=== PATIENT | male | born 1950 | race Caucasian/White ===

== ENCOUNTER 2020-05-02 13:52 | Outpatient (CLI) | payer OTHER, SELFPAY ==
[2020-05-02 17:32] LABS: Basophils Absolute Auto 0.1 K/mm3 (0.0-0.1); Basophils Percent Auto 0.6 % (0.2-1.2); Eosinophils Absolute Auto 0.1 K/mm3 (0-0.3); Eosinophils Percent Auto 0.7 % (0-4.4); Hematocrit 45.1 % (42.0-52.0); Hemoglobin 14.7 g/dL (14.0-18.0); Immature Granulocyte Absolute 0.03 K/mm3 (0.00-0.031); Immature Granulocyte Percent A 0.4 % (0-0.5); Lymphocytes Absolute Auto 2.01 K/mm3 (0.9-3.2); Lymphocytes Percent Auto 24.1 % (18.3-44.2); Mean Corpuscular HGB Conc 32.6 g/dl (32-36); Mean Corpuscular Hemoglobin 29.5 pg (26-34); Mean Corpuscular Volume 90.6 fl (80-100); Mean Platelet Volume 10.3 fl (7.4-10.4); Monocytes Absolute Auto 0.6 K/mm3 (0.1-0.6); Monocytes Percent Auto 7.2 % (2.6-8.5); Neutrophils Absolute Auto 5.6 K/mm3 (1.3-6.7); Platelet Count Result 449 k/mm3 (150-375); Red Blood Count 4.98 M/mm3 (4.6-6.20); Red Cell Distribution Width 13.3 % (11.5-14.5); White Blood Count 8.4 K/mm3 (4.5-10.0)
[2020-05-02 17:37] LABS: Add Urine Microscopic? YES; Appearance Urine Clear (Clear); Bilirubin Urine Negative (Negative); Blood Urine Negative (Negative); Color Urine Straw (Yellow); Glucose Urine UA 3+ mg/dL (Negative); Ketones Urine Negative (Negative); Leukocyte Esterase Ur Negative LEU/UL (Negative); Nitrate Urine Negative (Negative); Protein Urine Negative (Negative); RBC Urine 0-2 /hpf (0-2); Specific Grav Ur 1.009 (1.001-1.035); Urobilinogen Urine Negative mg/dL (<2.0); WBC Urine 0-3 /hpf
[2020-05-02 17:50] LABS: Iron 60 ug/dL (49-181)
[2020-05-02 17:52] LABS: Alanine Aminotransferase 23 U/L (4-50); Albumin Level 4.6 g/dL (3.5-5.1); Alkaline Phosphatase 68 U/L (38-126); Anion Gap 12 mmol/L (8-16); Aspartate Amino Transferase 23 U/L (17-59); Bilirubin,Total 0.5 mg/dL (0.2-1.3); Blood Urea Nitrogen 16 mg/dL (9-20); Calcium 9.8 mg/dL (8.4-10.2); Carbon Dioxide 26 mmol/L (22-30); Chloride 99 mmol/L (98-107); Cholesterol 115 mg/dL (0-200); Estimated Glomerular Filt Rate 43; Glucose 124 mg/dL (75-110); HDL Direct 38 mg/dL; Potassium 4.6 mmol/L (3.4-5.0); Sodium 137 mmol/L (137-145); Triglycerides 206 mg/dL (<150)
[2020-05-02 17:59] LABS: Percent Iron Saturation 16 % (20-50)
[2020-05-02 18:03] LABS: LDL Cholesterol Direct 41 mg/dL
[2020-05-02 18:10] LABS: Vitamin D 25 Hydroxy 20.5 ng/mL
[2020-05-08 10:08] LABS: Testosterone Total 273 ng/dL (250-1100)
== END 2020-05-02 13:53 | disposition home or self-care (01) ==
LOC: ANHBWCLAB 13:54
PROVIDERS: PCP Family Medicine; Visit Provider Family Medicine
DX: E11.9 Type 2 diabetes mellitus without complications (principal); N28.1 Cyst of kidney, acquired; E78.2 Mixed hyperlipidemia; G56.02 Carpal tunnel syndrome, left upper limb; N18.30 Chronic kidney disease, stage 3 unspecified; I12.9 Hypertensive chronic kidney disease with stage 1 through stage 4 chronic kidney disease, or unspecified chronic kidney disease; E66.3 Overweight; D47.3 Essential (hemorrhagic) thrombocythemia; Z82.62 Family history of osteoporosis; R53.83 Other fatigue; E87.1 Hypo-osmolality and hyponatremia; Z79.899 Other long term (current) drug therapy; M19.91 Primary osteoarthritis, unspecified site; N99.89 Other postprocedural complications and disorders of genitourinary system
CPT/HCPCS: 36415; 80053; 80061; 81001; 82306; 82607; 82746; 83036; 83540; 83550; 84402; 84403; 84443; 84681; 85025

== ENCOUNTER → 2020-07-03 10:54 | Outpatient (CLI) | payer OTHER, SELFPAY ==
--- NOTE | ~2020-07-03 | US_ITS ---
US renal BI 07/03/2020 11:12 Procedure: Realtime transabdominal ultrasound of the kidneys and bladder. Indication: Chronic kidney disease Comparison: 03/20/2019 Findings: Renal echotexture is normal bilaterally without hydronephrosis, contour deforming mass or r enal calculus. There is mild renal cortical thinning. The right kidney measures 10 cm and left kidney measures 10.6 cm. Bladder within normal limits. Impression: 1: Mild chronic bilateral renal cortical thinning. Reviewed, dictated and finalized at location B. AL PROCESSING ENGINEER Impression: 1: Mild chronic bilateral renal cortical thinning.
== END ==
PROVIDERS: PCP Family Medicine; Visit Provider Internal Medicine Nephrology
DX: I12.9 Hypertensive chronic kidney disease with stage 1 through stage 4 chronic kidney disease, or unspecified chronic kidney disease (principal); N18.30 Chronic kidney disease, stage 3 unspecified; E11.9 Type 2 diabetes mellitus without complications; E78.5 Hyperlipidemia, unspecified
CPT/HCPCS: 76775

== ENCOUNTER 2021-02-02 01:11 | Day surgery (SDC) | payer OTHER, SELFPAY ==
[2021-01-21 14:47] VITALS: BMI 28.0
[2021-02-02 12:57] VITALS: BP 143/100; PULSE 100; RESP 20; TEMP 36.8; O2SAT 100; BMI 27.9
[2021-02-02 13:12] LABS: Glucose Point of Care 167 mg/dl (65-105)
--- NOTE | 2021-02-02 13:12 | WPDANESEPPF ---
Anes - Initial Pre Proc Eval Procedure: Operation Date: 02/02/21 13:45 Proposed Procedures p Screening Colonoscopy - Juni Velazquez MD Date/Time: 02/02/21 13:12 Surgeon: Juni Velazquez MD Pre Op Diagnosis: neoplasm screening Patient Data Age: 70 Gender: M Height: 1.75 m Weight: 86.36 kg Allergies Allergy/AdvReac Type Severity Reaction Status Date / Time No Known Allergies Allergy Verified 02/02/21 12:56 Home Medications Medication Instructions Recorded Confirmed Type aspirin 81 mg tablet,delayed 81 mg PO DAILY 05/02/20 01/21/21 History release rosuvastatin 20 mg tablet 10 mg PO DAILY #45 tablet 05/08/20 01/21/21 Rx amlodipine 10 mg tablet 10 mg PO DAILY #90 tablet 10/31/20 01/21/21 Rx losartan 100 mg tablet See Rx Instructions .ROUTE 10/31/20 01/21/21 Rx .COMPLEX #90 tablet metformin 1,000 mg PO BID 01/21/21 01/21/21 History sitagliptin [Januvia] 50 mg PO DAILY 01/21/21 01/21/21 History Laboratory Tests 02/02/21 13:09 POC Capillary Glucose Pending Patient hx anesthesia problems: none Family hx anesthesia problems: none PMFSH Past Medical History Medical History (Updated 02/02/21 @ 13:13 by Rob Whaley MD) Benign essential hypertension CKD (chronic kidney disease) stage 3, GFR 30-59 ml/min Mixed hyperlipidemia Type 2 diabetes mellitus without complication, without long-term current use of insulin Family History Family History Sibling Cerebrovascular accident Mother Heart disease Father Heart disease Social History Social History Smoking status: Never smoker Alcohol intake: never Substance use: never Substance use type: does not use Living arrangements: with family Spiritual care concerns: No Anes - Eval Final PreProcedure Day of Procedure 02/02/21 13:12 Patient weight: overweight Heart: regular rate and rhythm Lungs: clear to auscultation Airway: Mallampati scale class II Neurological: alert and oriented Last oral intake: >/= 8 hours ASA classification: III Emergent: no Anesthetic plan: proceed Anesthesia type and monitoring: general GIVS and standard monitoring Informed Consent: The patient's anesthetic plan and its attendant risks and benefits were discussed with the patient/family/POA. Questions were solicited and answers provided to the satisfaction of the patient/family/POA.
[2021-02-02] MEDS: LACTATED RINGERS 1,000 ML 150 ML IV CONT (13:13)
--- NOTE | 2021-02-02 13:52 | PM.HPGS ---
History of Present Illness History of Present Illness Consent: Risks, benefits, and alternatives have been discussed and questions answered. Patient agrees to proceed with procedure. Chief complaint: neoplasm screening Narrative: Gilmer Humphreys Jr. is a 70 year old male here for first screening colonoscopy Review of Systems Constitutional: Constitutional: Denies headache(s) and Denies weakness Eyes: Eyes: Denies blurry vision ENT: Reports Normal hearing present, Denies headache(s) and Denies neck pain Cardiovascular: Cardiovascular: Denies chest pain and Denies dyspnea Respiratory: Respiratory: Denies dyspnea Gastrointestinal: Gastrointestinal: Reports no additional gastrointestinal complaints Genitourinary: Genitourinary: Denies dysuria Musculoskeletal: Musculoskeletal: Denies neck pain Integumentary/Breasts: Skin/Breast: Denies dry skin Neurologic: Reports Normal hearing present, Denies headache(s) and Denies weakness Psychiatric: Psychiatric: Denies anxiety Endocrine: Endocrine: Denies change in body appearance Hematologic/Lymphatic: Hematologic/Lymphatic: Denies easy bleeding Allergic/Immunologic: Allergic/Immunologic: Denies urticaria PMFSH Past Medical History Medical History (Updated 02/02/21 @ 13:53 by Juni Velazquez MD) Benign essential hypertension CKD (chronic kidney disease) stage 3, GFR 30-59 ml/min Colon cancer screening Mixed hyperlipidemia Type 2 diabetes mellitus without complication, without long-term current use of insulin Family History Family History Sibling Cerebrovascular accident Mother Heart disease Father Heart disease Social History Social History Smoking status: Never smoker Alcohol intake: never Substance use: never Substance use type: does not use Living arrangements: with family Spiritual care concerns: No Meds Home Medications and Allergies Home Medications Medication Instructions Recorded Confirmed Type aspirin 81 mg tablet,delayed 81 mg PO DAILY 05/02/20 01/21/21 History release rosuvastatin 20 mg tablet 10 mg PO DAILY #45 tablet 05/08/20 01/21/21 Rx amlodipine 10 mg tablet 10 mg PO DAILY #90 tablet 10/31/20 01/21/21 Rx losartan 100 mg tablet See Rx Instructions .ROUTE 10/31/20 01/21/21 Rx .COMPLEX #90 tablet metformin 1,000 mg PO BID 01/21/21 01/21/21 History sitagliptin [Januvia] 50 mg PO DAILY 01/21/21 01/21/21 History Allergies Allergy/AdvReac Type Severity Reaction Status Date / Time No Known Allergies Allergy Verified 02/02/21 12:56 Vital Signs Vital Signs - 24 hr 02/02/21 12:57 Temperature 98.2 F Pulse Rate 100 Respiratory Rate 20 Blood Pressure 143/100 H Pulse Oximetry 100 Exam Const: General: comfortable and no acute distress HENMT: General nose exam: Normal nares present Eyes: General: appearance normal, both eyes and all related structures Neck: Neck: no JVD Resp: Auscultation: clear to auscultation bilaterally Cardio: Rate: regular rate Rhythm: regular rhythm GI: Inspection: non-distended GI Palp: Yes Soft to palpation Skin: General skin exam: normal color Neuro: General: gait normal Speech: normal speech Extrem: General: normal to inspection Psych: Mental Status: mental status grossly normal Assessment and Plan Assessment and plan (1) Colon cancer screening: Code(s): Z12.11 - Encounter for screening for malignant neoplasm of colon Status: Acute Assessment and Plan: colonoscopy
[2021-02-02 14:12] VITALS: BP 101/74; PULSE 82; RESP 18; O2SAT 97
[2021-02-02 14:22] VITALS: BP 113/82; PULSE 72; RESP 17; O2SAT 98
[2021-02-02 14:32] VITALS: BP 135/92; PULSE 77; RESP 15; O2SAT 100
== END 2021-02-02 14:49 | disposition home or self-care (01) ==
PROVIDERS: PCP Family Medicine; Visit Provider Internal Medicine Gastroenterology
PROC: 0DJD8ZZ Inspection of Lower Intestinal Tract, Via Natural or Artificial Opening Endoscopic (ICD-10-PCS; CPT 45378; principal; 2021-02-02 13:45)
DX: Z12.11 Encounter for screening for malignant neoplasm of colon (principal); K63.5 Polyp of colon; K57.30 Diverticulosis of large intestine without perforation or abscess without bleeding; K64.8 Other hemorrhoids; I12.9 Hypertensive chronic kidney disease with stage 1 through stage 4 chronic kidney disease, or unspecified chronic kidney disease; E11.22 Type 2 diabetes mellitus with diabetic chronic kidney disease; N18.30 Chronic kidney disease, stage 3 unspecified; Z79.82 Long term (current) use of aspirin; Z79.84 Long term (current) use of oral hypoglycemic drugs
CPT/HCPCS: 45385; 82948; 88305; J2704; J7120

== ENCOUNTER 2021-03-26 14:32 | Outpatient (CLI) | payer OTHER, SELFPAY ==
[2021-03-26 18:09] LABS: Basophils Absolute Auto 0.1 K/mm3 (0.0-0.1); Basophils Percent Auto 0.9 % (0.2-1.2); Eosinophils Absolute Auto 0.1 K/mm3 (0-0.3); Eosinophils Percent Auto 1.2 % (0-4.4); Hematocrit 40.8 % (42.0-52.0); Hemoglobin 13.9 g/dL (14.0-18.0); Immature Granulocyte Absolute 0.03 K/mm3 (0.00-0.031); Immature Granulocyte Percent A 0.4 % (0-0.5); Lymphocytes Absolute Auto 1.76 K/mm3 (0.9-3.2); Lymphocytes Percent Auto 21.7 % (18.3-44.2); Mean Corpuscular HGB Conc 34.1 g/dl (32-36); Mean Corpuscular Hemoglobin 29.2 pg (26-34); Mean Corpuscular Volume 85.7 fl (80-100); Mean Platelet Volume 10.3 fl (7.4-10.4); Monocytes Absolute Auto 0.8 K/mm3 (0.1-0.6); Monocytes Percent Auto 9.2 % (2.6-8.5); Neutrophils Absolute Auto 5.4 K/mm3 (1.3-6.7); Neutrophils Percent Auto 66.6 % (45.5-73.1); Platelet Count Result 375 k/mm3 (150-375); Red Blood Count 4.76 M/mm3 (4.6-6.20); Red Cell Distribution Width 12.5 % (11.5-14.5); White Blood Count 8.1 K/mm3 (4.5-10.0)
[2021-03-26 18:21] LABS: Alanine Aminotransferase 46 U/L (4-50); Albumin Level 4.7 g/dL (3.5-5.1); Alkaline Phosphatase 65 U/L (38-126); Anion Gap 13 mmol/L (8-16); Aspartate Amino Transferase 28 U/L (17-59); Bilirubin,Total 0.7 mg/dL (0.2-1.3); Blood Urea Nitrogen 16 mg/dL (9-20); Calcium 10.1 mg/dL (8.4-10.2); Carbon Dioxide 21 mmol/L (22-30); Chloride 102 mmol/L (98-107); Cholesterol 157 mg/dL (0-200); Estimated Glomerular Filt Rate 55; Glucose 178 mg/dL (65-110); HDL Direct 39 mg/dL; Potassium 4.4 mmol/L (3.4-5.0); Sodium 136 mmol/L (137-145); Triglycerides 295 mg/dL (<150)
[2021-03-26 18:22] LABS: Iron 65 ug/dL (49-181)
[2021-03-26 18:24] LABS: Hemoglobin A1C 8.2 % (<5.7)
[2021-03-26 18:31] LABS: LDL Cholesterol Direct 65 mg/dL
[2021-03-26 18:35] LABS: Percent Iron Saturation 18 % (20-50)
[2021-03-26 19:36] LABS: MALB Creatinine Ratio 24.1 mg/g (0-30); Microalbumin Urine Random 13.5 mg/L (0-16.7)
== END 2021-03-26 14:33 | disposition home or self-care (01) ==
PROVIDERS: PCP Family Medicine; Visit Provider Family Medicine
DX: Z12.5 Encounter for screening for malignant neoplasm of prostate (principal); R53.83 Other fatigue; E87.1 Hypo-osmolality and hyponatremia; E11.9 Type 2 diabetes mellitus without complications; D47.3 Essential (hemorrhagic) thrombocythemia; N18.30 Chronic kidney disease, stage 3 unspecified; Z00.00 Encounter for general adult medical examination without abnormal findings
CPT/HCPCS: 36415; 80053; 80061; 82043; 83036; 83540; 83550; 84153; 85025; G0103

== ENCOUNTER 2021-04-06 23:39 | Inpatient (IN) | payer OTHER, SELFPAY ==
--- NOTE | ~2021-04-06 | XR_ITS ---
EXAMINATION: XR orbit foreign body DATE: 04/07/2021 11:27 INDICATION: Metal near eye. TECHNIQUE: 2 views of the orbits were obtained. COMPARISON: None. FINDINGS: There is leftward deviation the nasal septum. No fracture. There is a 6 x 2 mm radiopaque f oreign body in the periorbital soft tissues superomedial to the right orbit. IMPRESSION: 1. 6 x 2 mm radiopaque foreign body in the periorbital soft tissues superomedial to the right orbit. Reviewed, dictated and finalized at location A. EMIC SUPPORT COORDINATOR IMPRESSION: 1. 6 x 2 mm radiopaque foreign body in the periorbital soft tissues superomedia l to the right orbit.
--- NOTE | ~2021-04-06 | CT_ITS ---
EXAMINATION: CT abdomen pelvis w con DATE: 04/07/2021 01:38 INDICATION: Epigastric abdominal pain. Nausea and vomiting. History of gallstones. TECHNIQUE: Computed tomography (CT) of the abdomen and pelvis was performed with 100 cc Omnipaque 350 intravenous contrast. Automated exposure control and iterative reconstruction technique were employe d. Exam dose: 718.00 mGy-cm total exam DLP. COMPARISON: 11/30/2017 CT abdomen pelvis FINDINGS: There is minimal bilateral lower lobe dependent atelectasis, right greater than left. Normal heart size. Coronary artery calcifications. No pericardial or pleural effusion. Small sliding hiatal hernia and circumferential soft tissue thickening of the distal esophagus which may indicate esophagitis. There are numerous stones in the gallbladder. There is air within the gallbladder lumen and considera ble air within the hepatic bile ducts. The common bile duct is dilated up to approximately 12 mm. In some soft tissue density in the distal common bile duct which may be due to stones or neoplasm. No hepatic, splenic, pancreatic, and adrenal or renal space-occupying mass lesion is noted other than a 8 mm lower pole right renal cyst. No urinary tract calculus or hydroureteronephrosis. There is atherosclerotic calcification of the abdominal aorta but no aneurysm. No intraperitoneal or retroperitoneal or pelvic mass lesion or adenopathy or ascites. There is prostate enlargement and mild prostate calcification. The urinary bladder is unremarkable. There are multiple diverticula of the left colon; no CT evidence of diverticulitis. Normal appendix. No bowel obstruction, bowel wall thickening, pneumatosis or intraperitoneal free air is detected. Diffuse idiopathic skeletal hyperostosis of the thoracic and lumbar spine. Severe degenerative disc d isease at L5-S1. No suspicious osteolytic or osteoblastic lesions are noted. IMPRESSION: Cholelithiasis Pneumobilia Common bile duct dilatation; soft tissue density in the distal common bile duct may be due to choledo cholithiasis or neoplasm; consider MRCP or ERCP as clinically appropriate 8 mm lower pole right renal cyst Prostate enlargement and calcification Diverticulosis of left colon; no CT evidence of diverticulitis Reviewed, dictated and finalized at Location A. Reviewed, dictated and finalized at location A. DESTRUCTIVE TESTING INSPECTOR IMPRESSION: Cholelithiasis Pneumobilia Common bile duct dilatation; soft tissue density in the distal common bile duct may be due to choledocholithiasis or neoplasm; consider MRCP or ERCP as clinic ally appropriate 8 mm lower pole right renal cyst Prostate enlargement and calcification Diverticulosis of left colon; no CT evidence of diverticulitis
--- NOTE | ~2021-04-06 | MR_ITS ---
EXAMINATION: MR MRCP wo/w con/w 3D wo ind DATE: 04/07/2021 12:18 INDICATION: Epigastric abdominal pain. TECHNIQUE: Magnetic resonance imaging (MRI) of the abdomen was performed without and with 17 mL Multi Thaddeus intravenous contrast. Sequences included coronal T2-weighted FS FSE, coronal T2-weighted FSE, a xial T1-weighted LAVA, coronal FS FIESTA, axial dual-echo T1-weighted SPGR, coronal lava-FLEX, sagitt al T2-weighted FSE, axial T2-weighted FSE, and axial DWI. Thick-slab T2-weighted FSE images were obta ined for magnetic resonance cholangiopancreatography (MRCP). Maximum intensity projection 3-D reconst ructions of the volumetric data were created by the technologist. Postcontrast sequences included cor onal LAVA-flex and time course of axial T1-weighted LAVA. COMPARISON: CT abdomen and pelvis 04/07/2021 FINDINGS: ABDOMEN MRI: There is diffuse hepatic steatosis. There is mild intrahepatic biliary duct dilatation. The spleen is normal. There are gallstones in the gallbladder, which is distended and demonstrates wa ll thickening and adjacent fat stranding. The pancreas and adrenal glands are normal. There is cortic al thinning of the kidneys. There are cysts in right kidney measuring up to 9 mm. There are no dilate d loops of bowel. There is diverticulosis of the colon without evidence of diverticulitis. There are no pathologically enlarged lymph nodes. There is no free intraperitoneal fluid. ABDOMEN MRCP: The common duct is dilated to 11 mm. No choledocholithiasis. IMPRESSION: 1. Acute cholecystitis. 2. Mild intrahepatic and extrahepatic biliary duct dilatation. No choledocholithiasis. Reviewed, dictated and finalized at location A. INUOUS PROCESS TANNER ROTARY DRUM IMPRESSION: 1. Acute cholecystitis. 2. Mild intrahepatic and extrahepatic biliary duct dilatation. No choledocholit hiasis.
[2021-04-07] VITALS (11 sets, daily range): BP systolic 101–199; BP diastolic 44–100; PULSE 68–110; RESP 16–18; TEMP 35.7–36.8; O2SAT 95–99; BMI 28.3
[2021-04-07 00:39] LABS: Basophils Absolute Auto 0.1 K/mm3 (0.0-0.1); Basophils Percent Auto 0.4 % (0.2-1.2); Eosinophils Percent Auto 0.1 % (0-4.4); Hematocrit 40.7 % (42.0-52.0); Immature Granulocyte Percent A 0.6 % (0-0.5); Lymphocytes Absolute Auto 1.35 K/mm3 (0.9-3.2); Lymphocytes Percent Auto 7.6 % (18.3-44.2); Mean Corpuscular HGB Conc 34.4 g/dl (32-36); Mean Corpuscular Hemoglobin 29.6 pg (26-34); Mean Platelet Volume 9.6 fl (7.4-10.4); Monocytes Absolute Auto 0.6 K/mm3 (0.1-0.6); Monocytes Percent Auto 3.2 % (2.6-8.5); Neutrophils Absolute Auto 15.6 K/mm3 (1.3-6.7); Neutrophils Percent Auto 88.1 % (45.5-73.1); Platelet Count Result 456 k/mm3 (150-375); Red Blood Count 4.73 M/mm3 (4.6-6.20); Red Cell Distribution Width 12.2 % (11.5-14.5); White Blood Count 17.7 K/mm3 (4.5-10.0)
--- NOTE | 2021-04-07 00:51 | ED.ABDPAIN ---
HPI - Abdominal Pain General Chief Complaint: Abdominal Pain Stated Complaint: abdominal pain Time Seen by Provider: 04/07/21 00:51 Source: patient Mode of arrival: ambulatory Limitations: no limitations History of Present Illness HPI narrative: Patient is a 70-year-old male complain of epigastric pain, 7 out of 10, sharp, nonradiating accompanied by nausea and vomiting that started today. Patient denies any chest pain, shortness of breath, diarrhea, fever, chills or urinary symptoms. Related Data Home Medications Medication Instructions Recorded Confirmed aspirin 81 mg tablet,delayed 81 mg PO DAILY 05/02/20 04/01/21 release Allergies Allergy/AdvReac Type Severity Reaction Status Date / Time No Known Allergies Allergy Verified 04/07/21 00:39 Review of Systems Review of Systems: All systems reviewed & are unremarkable except as noted in HPI and below Constitutional: Constitutional: Denies body ache(s), Denies chills, Denies excessive sweating, Denies fatigue, Denies fever(s), Denies headache(s), Denies lethargy, Denies malaise, Denies weakness and Denies weight loss Eyes: Eyes: Denies blurry vision, Denies change in vision and Denies loss of vision ENT: Denies dizziness, Denies ear discharge, Denies headache(s), Denies lip swelling, Denies epistaxis, Denies nasal congestion, Denies neck pain, Denies throat swelling and Denies tongue swelling Cardiovascular: Cardiovascular: Denies chest pain, Denies chest pain at rest, Denies chest pain with activity, Denies diaphoresis, Denies rapid heart rate, Denies edema, Denies irregular heart rhythm, Denies lightheadedness, Denies palpitations, Denies dyspnea and Denies dyspnea on exertion Respiratory: Respiratory: Denies chest congestion, Denies cough, Denies hemoptysis, Denies dyspnea and Denies dyspnea on exertion Gastrointestinal: Gastrointestinal: Denies melena, Denies hematochezia, Denies diarrhea and Denies hematemesis Musculoskeletal: Musculoskeletal: Denies abnormal gait, Denies deformity, Denies joint swelling, Denies limited range of motion, Denies neck pain and Denies numbness Neurologic: Denies Abnormal speech present, Denies abnormal gait, Denies confusion, Denies dizziness, Denies headache(s), Denies focal weakness, Denies loss of vision, Denies numbness, Denies Other visual disturbances, Denies Sensory deficit (Neuro) and Denies weakness Psychiatric: Psychiatric: Denies confusion, Denies depression, Denies auditory hallucinations, Denies homicidal ideation and Denies suicidal ideation Endocrine: Endocrine: Denies cold intolerance, Denies excessive sweating, Denies fatigue, Denies heat intolerance and Denies palpitations Hematologic/Lymphatic: Hematologic/Lymphatic: Denies easy bleeding and Denies easy bruising Allergic/Immunologic: Allergic/Immunologic: Denies lip swelling, Denies throat swelling and Denies tongue swelling PMFSH Past Medical History Medical History Benign essential hypertension CKD (chronic kidney disease) stage 3, GFR 30-59 ml/min Colon cancer screening Mixed hyperlipidemia Type 2 diabetes mellitus without complication, without long-term current use of insulin Family History Family History Sibling Cerebrovascular accident Mother Heart disease Father Heart disease Social History Social History Smoking status: Never smoker Alcohol intake: never Substance use: never Substance use type: does not use Spiritual care concerns: No Exam Const: General: cooperative, healthy appearing, comfortable, no acute distress, well developed, alert and awake; No confusion Orientation/consciousness: oriented to person, oriented to place, oriented to time, patient oriented x3 and No confusion Limitations: no limitations HENMT: Head: normal to inspection, normocephalic and
[2021-04-07 00:53] LABS: Alanine Aminotransferase 29 U/L (4-50); Alkaline Phosphatase 66 U/L (38-126); Anion Gap 16 mmol/L (8-16); Aspartate Amino Transferase 26 U/L (17-59); Bilirubin,Total 0.5 mg/dL (0.2-1.3); Blood Urea Nitrogen 30 mg/dL (9-20); Calcium 9.5 mg/dL (8.4-10.2); Carbon Dioxide 23 mmol/L (22-30); Chloride 95 mmol/L (98-107); Estimated CRCL calculation 42 ml/min; Estimated Glomerular Filt Rate 46; Glucose 270 mg/dL (65-110); Lipase 105 U/L (23-300); Potassium 4.1 mmol/L (3.4-5.0); Sodium 134 mmol/L (137-145)
--- NOTE | 2021-04-07 01:00 | ECG_ITS ---
Measurements Intervals [place] Rate: 96 P: 36 TX: 151 QRS: 48 QRSD: 96 T: 55 QT: 368 QTc: 465 Interpretive Statements SINUS RHYTHM NONSPECIFIC T-WAVE ABNORMALITY- ANT/INF LEADS BASELINE WANDER- V1 BORDERLINE ECG Electronically Signed On 04-07-2021 6:34:34 MANAGER EMPLOYMENT by John Paul Medina D.O.
[2021-04-07] MEDS: PROMETHAZINE HCL 25 MG/ML AMPUL 12.5 MG IV PUSH (01:12)
[2021-04-07] MEDS: HYDROmorphone HCL INJ (*CRX) 1 MG/ML SYR 0.5 MG IV PUSH ×2 (01:12→05:57)
[2021-04-07] MEDS: SODIUM CHLORIDE 0.9% IV 1,000 ML 999 ML IV CONT (01:13)
[2021-04-07 01:37] LABS: Troponin I < 0.012 ng/mL (0.000-0.034)
--- NOTE | 2021-04-07 06:05 | ADMGEN ---
This patient, Gilmer Humphreys Jr., was admitted to Medical Room 349-01. Patient/family oriented to hospital policies and general routines including ID bracelet, bed and alarms, visiting hours, pain management, procedures, bathroom and other care routines, personal items, smoking policy, room service/diet, and visiting hours. Information on how to activate the Rapid Response Team has been discussed. Patient/Family are encouraged to report perceived risks to care and to ask questions if they do not understand what they are told or what they should do.
[2021-04-07] MEDS: LACTATED RINGERS 1,000 ML 125 ML IV CONT ×2 (06:13→18:11)
[2021-04-07 08:03] LABS: Glucose Point of Care 183 mg/dl (65-105)
[2021-04-07] MEDS: ONDANSETRON INJ 4 MG/2 ML VIAL IV PUSH ×2 (08:43→16:48)
[2021-04-07 09:35] LABS: Basophils Absolute Auto 0.1 K/mm3 (0.0-0.1); Basophils Percent Auto 0.2 % (0.2-1.2); Hematocrit 41.2 % (42.0-52.0); Immature Granulocyte Absolute 0.18 K/mm3 (0.00-0.031); Immature Granulocyte Percent A 0.8 % (0-0.5); Lymphocytes Absolute Auto 1.56 K/mm3 (0.9-3.2); Lymphocytes Percent Auto 6.7 % (18.3-44.2); Mean Corpuscular Hemoglobin 29.9 pg (26-34); Mean Platelet Volume 9.9 fl (7.4-10.4); Monocytes Absolute Auto 1.4 K/mm3 (0.1-0.6); Monocytes Percent Auto 5.8 % (2.6-8.5); Neutrophils Absolute Auto 20.1 K/mm3 (1.3-6.7); Neutrophils Percent Auto 86.5 % (45.5-73.1); Platelet Count Result 467 k/mm3 (150-375); Red Blood Count 4.68 M/mm3 (4.6-6.20); Red Cell Distribution Width 12.4 % (11.5-14.5); White Blood Count 23.3 K/mm3 (4.5-10.0)
[2021-04-07 09:43] LABS: Lactic Acid Reflex 1.6 mmol/L (0.7-2.1)
[2021-04-07 09:44] LABS: Alanine Aminotransferase 28 U/L (4-50); Albumin Level 4.9 g/dL (3.5-5.1); Alkaline Phosphatase 64 U/L (38-126); Anion Gap 13 mmol/L (8-16); Aspartate Amino Transferase 26 U/L (17-59); Bilirubin,Total 0.4 mg/dL (0.2-1.3); Blood Urea Nitrogen 23 mg/dL (9-20); Calcium 9.2 mg/dL (8.4-10.2); Carbon Dioxide 25 mmol/L (22-30); Chloride 94 mmol/L (98-107); Estimated CRCL calculation 48 ml/min; Estimated Glomerular Filt Rate 55; Glucose 195 mg/dL (65-110); Lipase 71 U/L (23-300); Potassium 3.8 mmol/L (3.4-5.0); Sodium 132 mmol/L (137-145)
[2021-04-07] MEDS: HYDROmorphone HCL INJ (*CRX) 1 MG/ML SYR IV PUSH ×2 (10:09→16:48)
--- NOTE | 2021-04-07 11:23 | PM.IMHP ---
H&P: HPI History of Present Illness Date/Time: 04/07/21 11:23 Pt is a 70 yo male w/ hx of HTN, HLD, CKD, DMII, and cholelithiasis who presented to the ED for epigastric pain and was subsequently admitted for cholelithiasis and possible choledocholithiasis. Pt reports that his epigastric pain started around 1400 yesterday while he was sitting watching TV. Pain had insidious onset and became progressively worse, prompting him to go to the ED for evaluation. He describes the pain as a constant ache and rates it as 10/10 currently. He also notes nausea with 4-5 episodes of vomiting yesterday. No constipation or diarrhea. No fever, chills, or body aches. Of note, patient states approximately 4 years ago he was admitted to this hospital with similar pain and was found to have gallstones. He was transferred to an outside facility and reports he had 10 gallstones removed but they did not do a cholecystectomy at the time. Review of prior records indicate he had a therapeutic ERCP in 2019 and was supposed to be referred to a general surgeon outpatient for cholecystectomy. Chief Complaint: Abdominal pain Review of Systems Review of Systems: General: Denies fevers, chills, bodyaches Eyes: Denies vision changes or eye pain ENT: Denies nasal congestion or sore throat Respiratory: Denies cough or shortness of breath Cardiovascular: Denies chest pain, palpitations, or lower extremity edema Gastrointestinal: + abdominal pain, + nausea, + vomiting, no diarrhea Genitourinary: Denies dysuria or urinary frequency Musculoskeletal: Denies back pain or muscle aches Neurological: Denies headache, paraesthesias, or motor weakness Integumentary: Denies rash or other skin lesions Psychiatric: Denies SI/HI [facility] Past Medical History Medical History (Updated 04/07/21 @ 11:45 by Caitlyn Martini PA-C) Benign essential hypertension Cholelithiasis CKD (chronic kidney disease) stage 3, GFR 30-59 ml/min Colon cancer screening Mixed hyperlipidemia Type 2 diabetes mellitus without complication, without long-term current use of insulin Surgical History Surgical History (Updated 04/07/21 @ 11:43 by Caitlyn Martini PA-C) History of carpal tunnel release History of ERCP Family History Family History Sibling Cerebrovascular accident Mother Heart disease Father Heart disease Social History Social History Smoking status: Never smoker Alcohol intake: never Substance use: never Substance use type: does not use Spiritual care concerns: No Meds Home Medications and Allergies Home Medications Medication Instructions Recorded Confirmed Type aspirin 81 mg tablet,delayed 81 mg PO DAILY 05/02/20 04/07/21 History release amlodipine 10 mg tablet 10 mg PO DAILY #90 tablet 02/18/21 04/07/21 Rx metformin 500 mg tablet 1,000 mg PO BID #180 tablet 03/19/21 04/07/21 Rx hydrochlorothiazide 12.5 mg capsule 12.5 mg PO DAILY #90 cap 04/01/21 04/07/21 Rx losartan 100 mg PO DAILY 04/07/21 04/07/21 History rosuvastatin 10 mg PO EVERY OTHER DAY 04/07/21 04/07/21 History sitagliptin [Januvia] 100 mg PO DAILY 04/07/21 04/07/21 History Allergies Allergy/AdvReac Type Severity Reaction Status Date / Time No Known Allergies Allergy Verified 04/07/21 06:17 Vital Signs Vital Signs - 24 hr 04/07/21 00:07 04/07/21 00:38 04/07/21 01:01 Temperature 97.3 F L 98 F Pulse Rate 102 H 100 Respiratory Rate 18 16 Blood Pressure 156/91 H 156/74 H 192/98 H Pulse Oximetry 98 97 04/07/21 01:41 04/07/21 01:46 04/07/21 02:46 Temperature Pulse Rate 84 Respiratory Rate 18 Blood Pressure 181/81 H 169/81 H 199/100 H Pulse Oximetry 04/07/21 03:44 04/07/21 06:14 04/07/21 06:53 Temperature 96.2 F L Pulse Rate 68 103 H Respiratory Rate 16 18 Blood Pressure 168/70 H 182/93 H 178/95 H Pulse Oximetry 99 98
[2021-04-07 12:41] LABS: Glucose Point of Care 194 mg/dl (65-105)
--- NOTE | 2021-04-07 12:51 | WPDGICN ---
Assessment and Plan Assessment and plan (1) Epigastric pain: Code(s): R10.13 - Epigastric pain Status: Acute Assessment and Plan: severe epigastric pain with similar presentation 2018 when required ERCP for choledocholithiasis but never had cholecystectomy CT scan reviewed and showed cholelithiasis but also had leukocytosis and early sepsis- possible cholecystitis, started on antibiotics will get MRCP to assess biliary system and decide if will need ERCP again will call surgery for consult, will need cholecystectomy (2) Cholecystitis: Code(s): K81.9 - Cholecystitis, unspecified Status: Acute Assessment and Plan: on antibiotics, npo and get mrcp consult surgery liver enzymes normal (3) Pneumobilia: Code(s): K83.8 - Other specified diseases of biliary tract Status: Acute Assessment and Plan: most likely from previous ercp will get MRCP to assess if he has more bile duct stones or any other lesions (4) Sepsis: Code(s): A41.9 - Sepsis, unspecified organism Status: Acute Assessment and Plan: on admission on antibiotics (5) Elevated WBC count: Qualifiers: Leukocytosis type: unspecified Qualified Code(s): D72.829 - Elevated white blood cell count, unspecified Code(s): D72.829 - Elevated white blood cell count, unspecified Status: Acute Assessment and Plan: monitor on antibiotics (6) Type 2 diabetes mellitus without complication, without long-term current use of insulin: Code(s): E11.9 - Type 2 diabetes mellitus without complications Status: Acute (7) Benign essential hypertension: Code(s): I10 - Essential (primary) hypertension Status: Acute (8) CKD (chronic kidney disease) stage 3, GFR 30-59 ml/min: Qualifiers: Chronic kidney disease stage 3 subtype: unspecified whether 3a or 3b Qualified Code(s): N18.30 - Chronic kidney disease, stage 3 unspecified Code(s): N18.3 - Chronic kidney disease, stage 3 (moderate) Status: Acute GI Consult Note Consult date/time: 04/07/21 12:51 Reason for consult: epigastric pain, cholecystitis HPI: Gilmer Humphreys Jr. is a 70 year old male with history of choledocholithiasis in 2018 when he presented to our ER but then transferred to [facility] for ERCP and stent placement then successfully removed few weeks afterward. He was told that will need cholecystectomy however never was contacted by surgery team. He also has h.o HTN, DM, colon diverticulosis. I performed his colonoscopy 01/2021 for screening and found diverticulosis and hyperplastic polyp. He is here because new onset of severe epigastric pain that started yesterday with radiation to his back and did not go away, also had nausea and vomiting. No fever or chills. This is similar to previous episode when required ERCP. He had CT scan a/p that was reviewed, showed cholelithiasis, pneumobilia and common bile duct dilatation with possible soft tissue density in the distal common bile. His liver enzymes are normal but he has leukocytosis, started on antibiotics. Review of Systems Constitutional: Constitutional: Denies chills Eyes: Eyes: Reports no additional eye complaints ENT: Reports Normal hearing present Cardiovascular: Cardiovascular: Denies chest pain Respiratory: Respiratory: Denies dyspnea Gastrointestinal: Gastrointestinal: Reports abdominal pain, Reports nausea and Reports vomiting Genitourinary: Genitourinary: Denies dysuria Musculoskeletal: Musculoskeletal: Denies neck pain Integumentary/Breasts: Skin/Breast: Denies dry skin Neurologic: Denies headache(s) Psychiatric: Psychiatric: Denies behavioral changes [facility] Past Medical History Medical History (Updated 04/07/21 @ 12:59 by Juni Velazquez MD) Benign essential hypertension Cholecystitis Cholelithiasis CKD (chronic kidney disease) stage 3, GFR 30-59 ml/min Colon cancer screening Epigastric pain Mix
--- NOTE | 2021-04-07 16:01 | PM.CNGS ---
Assessment and Plan Assessment and plan (1) Acute calculous cholecystitis: Code(s): K80.00 - Calculus of gallbladder with acute cholecystitis without obstruction Status: Acute Assessment and Plan: CT scan and MRCP reviewed and discussed with the patient in detail. CT scan showed cholelithiasis, pneumobilia, and CBD dilatation with soft tissue density in the distal CBD. MRCP then showed no evidence of choledocholithiasis and rather suggested findings of acute cholecystitis. LFTs normal. WBC up to 23,000 today. GI has been consulted and their recommendations are noted. He is continuing to have persistent abdominal pain this afternoon. We discussed treatment options with the patient regarding his acute cholecystitis. His symptoms just started yesterday afternoon, therefore he is in the timeframe where it would be reasonable to proceed with surgery. Also, considering his history of choledocholithiasis, the indication for a cholecystectomy would be even stronger. We have recommended a laparoscopic cholecystectomy, possible open, possible IOC by Dr. Corrigan in the OR under general anesthesia. Description of the procedure, risks, benefits, expected outcomes, and expected recovery were discussed with the patient in detail. All questions were answered. The patient agrees to proceed with surgery. We will work on adding him onto the OR schedule potentially tomorrow. Continue broad-spectrum IV antibiotics, IV fluids, analgesics, and antiemetics for now. We have given him a gallbladder sheet that further discuss the surgery and gives instructions on a low-fat diet to follow postoperatively. Thank you for allowing us to see the patient in consultation and we will continue to follow along with you. (2) Pneumobilia: Code(s): K83.8 - Other specified diseases of biliary tract Status: Acute Assessment and Plan: [place] likely to be due to previous ERCP. (3) Sepsis: Code(s): A41.9 - Sepsis, unspecified organism Status: Acute Assessment and Plan: Sepsis criteria met on admission with leukocytosis and tachycardia in the presence of known infection. Lactic 1.6. Likely secondary to the gallbladder. Blood cultures pending. Continue IV Zosyn, IV fluids, and trend labs. See plan above regarding cholecystectomy. (4) Type 2 diabetes mellitus without complication, without long-term current use of insulin: Code(s): E11.9 - Type 2 diabetes mellitus without complications Status: Chronic Assessment and Plan: Glucose running high 100-200's. I spoke with the patient about the associated risks with surgery regarding his diabetes. He does not have a finger-stick glucose monitor at home currently. I encouraged him to get one to watch his glucose once discharged to monitor his glucose and optimize his recovery and healing. (5) Benign essential hypertension: Code(s): I10 - Essential (primary) hypertension Status: Acute Assessment and Plan: (6) CKD (chronic kidney disease) stage 3, GFR 30-59 ml/min: Qualifiers: Chronic kidney disease stage 3 subtype: unspecified whether 3a or 3b Qualified Code(s): N18.30 - Chronic kidney disease, stage 3 unspecified Code(s): N18.3 - Chronic kidney disease, stage 3 (moderate) Status: Acute (7) Overweight (BMI 25.0-29.9): Code(s): E66.3 - Overweight Status: Acute Additional Plan I have discussed the patient's case and plan of care with Dr. Corrigan. History of Present Illness Consult details Consult date: 04/07/21 Reason for consult: gallstones (Possible acute calculous cholecystitis) Requesting physician: Juni Velazquez MD Narrative: This is a 70-year-old male with a history of type 2 diabetes mellitus and hypertension, who presented to the emergency department overnight with complaints of epigastric abdominal pain and vomiting. The patient does have a history of choledocholithiasis back in 2018, w
[2021-04-07 16:35] LABS: Glucose Point of Care 216 mg/dl (65-105)
[2021-04-07] MEDS: INSULIN ASPART (*BKC) 100 UNITS/ML SUB-Q (16:49)
[2021-04-07 21:45] LABS: Glucose Point of Care 241 mg/dl (65-105)
[2021-04-08] VITALS (16 sets, daily range): BP systolic 120–161; BP diastolic 66–90; PULSE 94–112; RESP 16–23; TEMP 36.2–38.3; O2SAT 95–100
[2021-04-08] MEDS: LACTATED RINGERS 1,000 ML 125 ML IV CONT (03:21)
[2021-04-08 05:52] LABS: Basophils Absolute Auto 0.1 K/mm3 (0.0-0.1); Basophils Percent Auto 0.3 % (0.2-1.2); Hematocrit 35.8 % (42.0-52.0); Hemoglobin 12.3 g/dL (14.0-18.0); Immature Granulocyte Percent A 0.4 % (0-0.5); Lymphocytes Absolute Auto 1.61 K/mm3 (0.9-3.2); Lymphocytes Percent Auto 7.2 % (18.3-44.2); Mean Corpuscular HGB Conc 34.4 g/dl (32-36); Mean Corpuscular Hemoglobin 29.9 pg (26-34); Mean Corpuscular Volume 87.1 fl (80-100); Mean Platelet Volume 9.8 fl (7.4-10.4); Monocytes Absolute Auto 1.8 K/mm3 (0.1-0.6); Monocytes Percent Auto 8.2 % (2.6-8.5); Neutrophils Absolute Auto 18.7 K/mm3 (1.3-6.7); Neutrophils Percent Auto 83.9 % (45.5-73.1); Platelet Count Result 273 k/mm3 (150-375); Red Blood Count 4.11 M/mm3 (4.6-6.20); Red Cell Distribution Width 12.4 % (11.5-14.5); White Blood Count 22.3 K/mm3 (4.5-10.0)
[2021-04-08 06:22] LABS: Alanine Aminotransferase 19 U/L (4-50); Albumin Level 3.8 g/dL (3.5-5.1); Alkaline Phosphatase 47 U/L (38-126); Anion Gap 9 mmol/L (8-16); Aspartate Amino Transferase 20 U/L (17-59); Bilirubin,Total 0.4 mg/dL (0.2-1.3); Blood Urea Nitrogen 18 mg/dL (9-20); Calcium 8.4 mg/dL (8.4-10.2); Carbon Dioxide 23 mmol/L (22-30); Chloride 97 mmol/L (98-107); Estimated CRCL calculation 45 ml/min; Estimated Glomerular Filt Rate 50; Glucose 212 mg/dL (65-110); Magnesium 1.7 mg/dL (1.6-2.3); Potassium 3.7 mmol/L (3.4-5.0); Sodium 129 mmol/L (137-145)
[2021-04-08] MEDS: CHLORHEXIDINE GLUCONATE 4% SOL 120 ML BTL 1 APPLIC TOPICAL (06:36)
[2021-04-08] MEDS: ACETAMINOPHEN 325 MG TABLET 650 MG PO (06:48)
[2021-04-08 08:04] LABS: Glucose Point of Care 208 mg/dl (65-105)
[2021-04-08] MEDS: SODIUM CHLORIDE 0.9% IV 1,000 ML 125 ML IV CONT (08:59)
[2021-04-08] MEDS: INSULIN ASPART (*BKC) 100 UNITS/ML SUB-Q ×2 (09:00→13:14)
[2021-04-08 12:08] LABS: Glucose Point of Care 213 mg/dl (65-105)
--- NOTE | 2021-04-08 13:19 | PM.IMPN ---
Progress Note: A&P Assessment and Plan (1) Acute calculous cholecystitis: Code(s): K80.00 - Calculus of gallbladder with acute cholecystitis without obstruction Status: Acute Assessment and Plan: -Sounds like pt has a complicated hx regarding cholelithiasis including previous admission, transfer to outside facility, and therapeutic ERCP. Was recommended he have outpatient cholecystectomy at that time but patient never followed up. -CT abd/pelv w/ cholelithiasis, pneumobilia, common bile duct dilatation; soft tissue density in the distal common bile duct may be due to choledocholithiasis or neoplasm; consider MRCP or ERCP as clinically appropriate -MRCP showing acute cholecystitis -Consult placed to GI and general surgery -Cholecystectomy planned for today (2) Sepsis: Code(s): A41.9 - Sepsis, unspecified organism Status: Acute Assessment and Plan: -Meets SIRS based on tachycardia and leukocytosis of 23.3, likely due to above -Lactate negative -Received 1L NS bolus in ED and is currently receiving LR @125/hr -Zosyn started in ED, will continue -Spiked fever this morning. Continue IVF, IV zosyn, and cholecystectomy planned today -BC no growth as of today (had received one dose of zosyn in ED prior to blood cultures being drawn) (3) Type 2 diabetes mellitus without complication, without long-term current use of insulin: Code(s): E11.9 - Type 2 diabetes mellitus without complications Status: Chronic Assessment and Plan: -Takes Januvia and Metformin at home, currently held while patient is NPO -Low dose sliding scale as needed -Continue monitoring and resume home medications when no longer NPO (4) CKD (chronic kidney disease) stage 3, GFR 30-59 ml/min: Qualifiers: Chronic kidney disease stage 3 subtype: unspecified whether 3a or 3b Qualified Code(s): N18.30 - Chronic kidney disease, stage 3 unspecified Code(s): N18.3 - Chronic kidney disease, stage 3 (moderate) Status: Acute Assessment and Plan: -Creat stable from prior -Followed by outside exercise science instructor -Continue monitoring (5) Benign essential hypertension: Code(s): I10 - Essential (primary) hypertension Status: Acute Assessment and Plan: -Mildly hypertensive, likely increased due to pain -BP meds held as pt is NPO -Hydralazine prn -Resume home medications when no longer NPO (6) Hyponatremia: Code(s): E87.1 - Hypo-osmolality and hyponatremia Status: Acute Assessment and Plan: -Likely due to above -Continue IV NS -Recheck tomorrow Subjective Date/time seen: 04/08/21 13:19 Interval history: 70-year-old male with history of HTN, CKD and DM here for abdominal pain and found to have acute cholecystitis. Today he is feeling okay. Still having abdominal pain but improved. Describes it as achey in the epigastric area and RUQ. N/V resolved. Had fever of 101 this morning. Scheduled for cholecystectomy tonight. Review of Systems Review of Systems: General: + fevers, + chills, + bodyaches Eyes: Denies vision changes or eye pain ENT: Denies nasal congestion or sore throat Respiratory: Denies cough or shortness of breath Cardiovascular: Denies chest pain, palpitations, or lower extremity edema Gastrointestinal: + abdominal pain, no nausea, no vomiting, no diarrhea Genitourinary: Denies dysuria or urinary frequency Musculoskeletal: Denies back pain or joint pain Neurological: Denies headache, paraesthesias, or motor weakness Integumentary: Denies rash or other skin lesions Exam Narrative: General: NAD, mildly ill appearing Eyes: PERRL, no scleral icterus HEENT: NCAT, external ears normal, MMM Respiratory: No respiratory distress, Lungs CTA bilaterally, no wheezing Cardiovascular: RRR, no murmur Abdominal: Soft, moderately tender epigastric and RUQ, non distended, no rebound or guarding Musculoskeletal: Moves all 4 extremi
[2021-04-08] MEDS: LACTATED RINGERS 1,000 ML 30 ML IV CONT ×3 (14:02→18:20)
--- NOTE | 2021-04-08 14:09 | WPDANESEPPF ---
Anes - Initial Pre Proc Eval Procedure: Operation Date: 04/08/21 16:00 Proposed Procedures p Laparoscopic Cholecystectomy,Possible Intraoperative Cholangiograms,Possible Open - Johnathon Corrigan MD Date/Time: 04/08/21 14:09 Surgeon: Caitlyn Martini PA-C Pre Op Diagnosis: RUQ Pain, Cholelithiasis,Choledocholithiasis Patient Data Age: 70 Gender: M Height: 1.75 m Weight: 86.9 kg Last Vital Signs Temp 36.8 C 04/08/21 11:00 Pulse 99 04/08/21 09:27 Resp 16 04/08/21 09:27 BP 133/81 04/08/21 09:27 Pulse Ox 98 04/08/21 09:27 Allergies Allergy/AdvReac Type Severity Reaction Status Date / Time No Known Allergies Allergy Verified 04/07/21 06:17 Home Medications Medication Instructions Recorded Confirmed Type aspirin 81 mg tablet,delayed 81 mg PO DAILY 05/02/20 04/07/21 History release amlodipine 10 mg tablet 10 mg PO DAILY #90 tablet 02/18/21 04/07/21 Rx metformin 500 mg tablet 1,000 mg PO BID #180 tablet 03/19/21 04/07/21 Rx hydrochlorothiazide 12.5 mg capsule 12.5 mg PO DAILY #90 cap 04/01/21 04/07/21 Rx losartan 100 mg PO DAILY 04/07/21 04/07/21 History rosuvastatin 10 mg PO EVERY OTHER DAY 04/07/21 04/07/21 History sitagliptin [Januvia] 100 mg PO DAILY 04/07/21 04/07/21 History Laboratory Tests 04/07/21 04/07/21 04/08/21 16:28 21:40 05:44 WBC 22.3 K/mm3 H K/mm3 (4.5-10.0) RBC 4.11 M/mm3 L M/mm3 (4.6-6.20) Hgb 12.3 g/dL L g/dL (14.0-18.0) Hct 35.8 % L % (42.0-52.0) MCV 87.1 fl fl (80-100) MCH 29.9 pg pg (26-34) MCHC 34.4 g/dl g/dl (32-36) RDW 12.4 % % (11.5-14.5) Plt Count 273 k/mm3 k/mm3 (150-375) MPV 9.8 fl fl (7.4-10.4) Immature Gran % (Auto) 0.4 % % (0-0.5) Neut % (Auto) 83.9 % H % (45.5-73.1) Lymph % (Auto) 7.2 % L % (18.3-44.2) [place] % (Auto) 8.2 % % (2.6-8.5) Eos % (Auto) 0.0 % % (0-4.4) Baso % (Auto) 0.3 % % (0.2-1.2) Lymph # (Auto) 1.61 K/mm3 K/mm3 (0.9-3.2) [place] # (Auto) 1.8 K/mm3 H K/mm3 (0.1-0.6) Eos # (Auto) 0.0 K/mm3 K/mm3 (0-0.3) Baso # (Auto) 0.1 K/mm3 K/mm3 (0.0-0.1) Abs Immat Gran (auto) 0.10 K/mm3 H K/mm3 (0.00-0.031) Absolute Neuts (auto) 18.7 K/mm3 H K/mm3 (1.3-6.7) Absolute Nucleated RBC 0.0 K/mm3 K/mm3 (0.0-0.012) Nucleated RBC % 0.0 % % (0.0-0.2) Sodium Potassium Chloride Carbon Dioxide Anion Gap BUN Creatinine Estim Creat Clear Calc Estimated GFR Glucose POC Capillary Glucose 216 mg/dl H mg/dl 241 mg/dl H mg/dl (65-105) (65-105) Calcium Magnesium Total Bilirubin AST ALT Alkaline Phosphatase Total Protein Albumin 04/08/21 04/08/21 04/08/21 05:44 08:01 11:50 WBC RBC Hgb Hct MCV MCH MCHC RDW Plt Count MPV Immature Gran % (Auto) Neut % (Auto) Lymph % (Auto) [place] % (Auto) Eos % (Auto) Baso % (Auto) Lymph # (Auto) [place] # (Auto) Eos # (Auto) Baso # (Auto) Abs Immat Gran (auto) Absolute Neuts (auto) Absolute Nucleated RBC Nucleated RBC % Sodium 129 mmol/L L mmol/L (137-145) Potassium 3.7 mmol/L mmol/L (3.4-5.0) Chloride 97 mmol/L L mmol/L (98-107) Carbon Dioxide 23 mmol/L mmol/L (22-30) Anion Gap 9 mmol/L mmol/L (8-16) BUN 18 mg/dL mg/dL (9-20) Creatinine 1.40 mg/dL H mg/dL
--- NOTE | 2021-04-08 14:16 | P.HPUP_ITS ---
History and Physical Update Update Date/Time: 04/08/21 14:16 History and Physical has been reviewed, including an updated exam of the patient. There are changes in the patient's condition. His pain is slightly better than yesterday and his white blood cell count, while on strong antibioti cs, has come down to 15,000 today. Risks, benefits, and alternatives have been discussed and questions answered. Patient agrees to proceed with procedure.
[2021-04-08] MEDS: LIDO 2%/EPINEPHRINE 1:100,000 20 ML VIAL INFILTRATE (15:34)
--- NOTE | 2021-04-08 16:00 | WPDGIPROGNO ---
Progress Note: A&P Assessment and Plan (1) Acute calculous cholecystitis: Code(s): K80.00 - Calculus of gallbladder with acute cholecystitis without obstruction Status: Acute Assessment and Plan: surgery will perform lap elif today no need of ERCP (reviewed MRCP) (2) Epigastric pain: Code(s): R10.13 - Epigastric pain Status: Acute (3) Elevated WBC count: Qualifiers: Leukocytosis type: unspecified Qualified Code(s): D72.829 - Elevated white blood cell count, unspecified Code(s): D72.829 - Elevated white blood cell count, unspecified Status: Acute Assessment and Plan: on antibiotics surgical management (4) Pneumobilia: Code(s): K83.8 - Other specified diseases of biliary tract Status: Acute Assessment and Plan: from previous ercp few years ago Subjective Date/time seen: 04/08/21 11:00 Interval history: MRCP reviewed and no bile duct stones, he has cholecystitis Review of Systems Review of Systems: All systems reviewed & are unremarkable except as noted in HPI and below Exam Const: General: comfortable and no acute distress HENMT: General nose exam: Normal nares present Eyes: General: appearance normal, both eyes and all related structures Neck: Neck: no JVD Resp: Auscultation: clear to auscultation bilaterally Cardio: Rate: regular rate Rhythm: regular rhythm GI: Inspection: non-distended GI Palp: Yes Soft to palpation and Yes Tenderness to palpation present (GI) Auscultation: normal bowel sounds Skin: General skin exam: normal color Neuro: Speech: normal speech Motor exam (neuro): Normal motor muscle tone present throughout Extrem: General: normal to inspection Psych: Mental Status: mental status grossly normal Objective Data Vital Signs Vital Signs: Vital Signs - 24 hr 04/07/21 21:44 04/08/21 05:58 04/08/21 06:48 Temperature 98.2 F 101 F H 101 F H Pulse Rate 110 H 110 H Respiratory Rate 18 18 Blood Pressure 146/83 H 120/66 Pulse Oximetry 97 97 04/08/21 07:48 04/08/21 08:48 04/08/21 09:27 Temperature 99.2 F 98.6 F 98.3 F Pulse Rate 99 Respiratory Rate 16 Blood Pressure 133/81 Pulse Oximetry 98 04/08/21 11:00 04/08/21 13:30 Temperature 98.3 F 100.9 F H Pulse Rate 112 H Respiratory Rate 18 Blood Pressure 157/81 H Pulse Oximetry 97 Intake/Output Intake/Output: Intake & Output 04/05/21 04/06/21 04/07/21 04/08/21 23:59 23:59 23:59 23:59 Intake Total 2680 1518 Balance 2680 1518 Meds/Results Medications: Active Medications Generic Name Dose Route Start Last Admin Trade Name Freq PRN Reason Stop Dose Admin Acetaminophen 650 mg 04/08/21 06:26 04/08/21 06:48 Acetaminophen 325 Mg Tablet PO 650 mg Q4H PRN Administration Mild Pain (1-3) or Fever Dextrose 12.5 gm 04/07/21 08:25 Dextrose 50% 25 Gm/50 Ml Syringe IV PUSH PRN PRN Hypoglycemia Protocol Fentanyl Citrate 25 mcg 04/08/21 14:08 Fentanyl Citrate Inj (*Crx) 100 Mcg/2 Ml Vial IV PUSH Q2M PRN Pain Fentanyl Citrate 25 mcg 04/08/21 14:12 Fentanyl Citrate Inj (*Crx) 100 Mcg/2 Ml Vial IV PUSH Q2M PRN Pain Glucagon 1 mg 04/07/21 08:25 Glucagon For Inj 1 Mg Vial IM PRN PRN Hypoglycemia Protocol Glucose 15 gm 04/07/21 08:25 Glucose Oral Gel 15 Gm Of Glucse In 37.5 Gm Tube PO PRN PRN Hypoglycemia Protocol Hydralazine HCl 10 mg 04/07/21 08:26 Hydralazine Hcl 20 Mg/Ml Vial IV PUSH Q8H PRN Blood Pressure - High Hydromorphone HCl 1 mg 04/07/21 09:04 04/07/21 16:48 Hydromorphone Hcl Inj (*Crx) 1 Mg/Ml Syr IV PUSH 1 mg Q3H PRN Administration Pain Rated 7-10 Piperacillin/Tazobactam/Dextrose 3.375 gm in 50 mls @ 100 mls/hr 04/07/21 11:00 04/08/21 14:34 Zosyn 3.375 Gm/D5w 50ml Pm IVPB Infused Q6HR OUMAR Infusion Dextrose 1,000 mls @ 100 mls/hr 04/07/21 08:25
--- NOTE | 2021-04-08 17:05 | SUR.OPER ---
Lab Report on Gram stain called from Mahendra @ [id number] WBCs, Moderate Gram Neg Bacilli. Report results verbally passed on to Dr. Corrigan Intraoperatively
[2021-04-08 18:24] LABS: Glucose Point of Care 239 mg/dl (65-105)
--- NOTE | 2021-04-08 18:31 | W.PM.PROC2 ---
Procedure Note - Detailed Date of Procedure 04/08/21 Pre-op Diagnosis RUQ Pain, Acute Cholecystitis with Cholelithiasis, Post-op Diagnosis same Procedure Performed Laproscopic Cholecystectomy Surgeon Johnathon Corrigan MD [employer]ENT.OR anesthetic assistant's Anesthesia general Indications Please see surgical consultation in the chart. Patient developed unrelenting right upper quadrant epigastric pain approximately 3 days ago. MRCP showed no stones in the common bile duct but somewhat dilated duct with some air in it. This was probably because of a previous ERCP in 2018. There was significant inflammation of gallbladder with stones in the gallbladder and after thorough discussion the patient decided to proceed with surgical intervention to try to prevent sepsis and also to prevent future episodes of choledocholithiasis. Findings Patient had a large very inflamed very thick walled gallbladder. There was a reasonable length cystic duct which was able to be dissected along with a cystic artery just cephalad to it. Of very small window of safety was identified therefore a cholangiogram was not done having reviewed the MRCP with the radiologist this before surgery and knowing that the patient's liver function tests were normal this morning. Description of Procedure Patient was seen preoperatively in the holding area and risks, benefits and alternatives confirmed. Patient was taken to the operating room and general anesthesia was induced. A time out was then preformed with the surgery team confirming patient and site of surgery. The abdomen was prepped and draped in the usual sterile fashion. Incision was made just below the umbilicus with an 11 blade knife. I placed 2 stay sutures of O- Vicryl on either side of the mid-line fascia beneath the umbilicus and was then able to slide in the Méndez cannula through the fascial defect into the peritoneum. First under low flow and then under high flow the abdomen was insufflated with carbon dioxide never exceeding a pressure of 14. Two 5 mm and one 12 mm trocars were then introduced under direct vision. The following trocars were introduced under direct vision: a 12 mm in the epigastrium and two 5 mm trocars along the right costal margin laterally in the subcostal area. There were significant omental adhesions to the underside of the gallbladder. These were taken down with blunt and sharp dissection using some Bovie cautery for hemostasis. This was tedious and we also used multiple kidney nurse in order to try to dissect the inflammatory adhesions such that we could see the triangle of [place]. We were able to dissect this completely away from the neck of the gallbladder. I then carefully used the L-shaped cautery, the [place] dissector, and the 10 mm right angle dissector to dissect out the triangle of [place]. I then was able to dissect out both the cystic duct and cystic artery and identify a window of safety. The gall bladder was grasped and the cystic duct and artery were dissected free and clipped with an 5 mm endo-clip manufacturing scheduler. The cystic duct and artery were clipped with use of 2 clips on the patient's side 1 on the gallbladder side utilizing a 5 mm endoclip-manufacturing scheduler. The cystic duct was then transected. The cystic artery was also transected at this point. The gall bladder was removed using electrocautery and then removed from the abdomen using an endobag . In order to get the large stone-filled GB out of the abdomen within the gallbladder I did make the fascial defect slightly larger with Jenkins scissors. In order to get this out of the abdomen we did bring a portion of the bag out, open it, and then opened the cystic duct (removing the clip that had been on it and reached inside and suctioned inside it to remove fluid and yellowish brown stones. This allowed us to then remove the gallbladder within the bag from an approximately a 3 cm long vertical fascial incision at the level of the umbilicus a
--- NOTE | 2021-04-08 19:11 | SUR.PHASEI ---
able to place upper dentures in pt mouth.
--- NOTE | 2021-04-08 19:50 | PC.NURSE ---
Pt received from PACU.
[2021-04-08] MEDS: SENNA/DOCUSATE SODIUM TABLET 2 TAB PO (21:33)
[2021-04-08 21:48] LABS: Glucose Point of Care 261 mg/dl (65-105)
[2021-04-08 22:09] LABS: Creatinine Urine 111.6 mg/dL
[2021-04-08 22:10] LABS: Sodium Urine Random 109 meq/L
[2021-04-09 00:51] VITALS: BP 146/83; PULSE 90; RESP 18; TEMP 36.2; O2SAT 98
[2021-04-09 05:22] VITALS: BP 140/76; PULSE 94; RESP 18; TEMP 36.3; O2SAT 98
[2021-04-09] MEDS: SODIUM CHLORIDE 0.9% IV 1,000 ML 125 ML IV CONT ×2 (05:26→14:29)
[2021-04-09 05:54] LABS: Basophils Percent Auto 0.2 % (0.2-1.2); Eosinophils Absolute Auto 0.6 K/mm3 (0-0.3); Hematocrit 33.3 % (42.0-52.0); Immature Granulocyte Absolute 0.15 K/mm3 (0.00-0.031); Immature Granulocyte Percent A 0.8 % (0-0.5); Lymphocytes Absolute Auto 1.77 K/mm3 (0.9-3.2); Mean Corpuscular Hemoglobin 29.7 pg (26-34); Mean Platelet Volume 9.9 fl (7.4-10.4); Monocytes Absolute Auto 1.3 K/mm3 (0.1-0.6); Monocytes Percent Auto 6.8 % (2.6-8.5); Neutrophils Absolute Auto 15.8 K/mm3 (1.3-6.7); Neutrophils Percent Auto 80.2 % (45.5-73.1); Platelet Count Result 260 k/mm3 (150-375); Red Cell Distribution Width 12.5 % (11.5-14.5); White Blood Count 19.6 K/mm3 (4.5-10.0)
[2021-04-09 06:06] LABS: Alanine Aminotransferase 56 U/L (4-50); Albumin Level 3.4 g/dL (3.5-5.1); Alkaline Phosphatase 46 U/L (38-126); Anion Gap 8 mmol/L (8-16); Aspartate Amino Transferase 58 U/L (17-59); Bilirubin,Total 0.4 mg/dL (0.2-1.3); Blood Urea Nitrogen 16 mg/dL (9-20); Calcium 8.3 mg/dL (8.4-10.2); Carbon Dioxide 23 mmol/L (22-30); Chloride 100 mmol/L (98-107); Estimated CRCL calculation 39 ml/min; Estimated Glomerular Filt Rate 43; Glucose 176 mg/dL (65-110); Lipase 16 U/L (23-300); Potassium 4.8 mmol/L (3.4-5.0); Sodium 131 mmol/L (137-145)
--- NOTE | 2021-04-09 07:57 | PM.PNGS ---
Progress Note: A&P Assessment and Plan (1) Acute calculous cholecystitis: Onset Date: ~03/2021 Code(s): K80.00 - Calculus of gallbladder with acute cholecystitis without obstruction Status: Acute Assessment and Plan: Patient now postop day 1. Status post difficult laparoscopic cholecystectomy. Seems to be recovering okay. Concerned slightly about his elevated creatinine. But he does have chronic kidney disease. Will continue IV fluids for now until we know he is tolerating liquids well. He needs to have strict I&O for a while longer. Encouraged him to get up and move, take a pain pill so that he could use incentive spirometry, and walk in the hallways. Will leave it up to hospitalist as to whether not he needs another day for observation and further labs in the morning regarding his chronic kidney disease and status of sepsis/ dehydration. (2) CKD (chronic kidney disease) stage 3, GFR 30-59 ml/min: Onset Date: Unknown Qualifiers: Chronic kidney disease stage 3 subtype: unspecified whether 3a or 3b Qualified Code(s): N18.30 - Chronic kidney disease, stage 3 unspecified Code(s): N18.3 - Chronic kidney disease, stage 3 (moderate) Status: Acute Assessment and Plan: Creatinine up to 1.6 today but BUN normal. I continued normal saline overnight and the patient has not been drinking much so will have to see if this improves or whether this is a permanent issue after his acute cholecystitis with sepsis. (3) Epigastric pain: Code(s): R10.13 - Epigastric pain Status: Acute Assessment and Plan: somewhat improved now postop day 1 from laparoscopic cholecystectomy. (4) Pneumobilia: Code(s): K83.8 - Other specified diseases of biliary tract Status: Acute Assessment and Plan: this is not concerning as it is often present after ERCP which she had in 2017 or 2018 at [facility]. (5) Sepsis: Code(s): A41.9 - Sepsis, unspecified organism Status: Acute Assessment and Plan: Blood culture still negative this morning and culture still pending on the bile that I sent from his gallbladder yesterday afternoon. (6) Type 2 diabetes mellitus without complication, without long-term current use of insulin: Code(s): E11.9 - Type 2 diabetes mellitus without complications Status: Chronic Assessment and Plan: As per hospitalist. Subjective Subjective Date/Time Seen: 04/09/21 07:57 Post Op day: 1 ( Seems to be recovering well) Patient reports: no new complaints, still having pain ( mainly generalized upper abdomen) and no flatus Interval history: The patient has done okay overnight. His nurse states he has not asked for anything for pain. However, the patient states he is having upper abdominal pain. He did not have ice bags on his incisions when I came in. He did not have an incentive spirometer in his room. I talked to about this and asked the nurse to get him 1. He did not catch at least 2 of his voids overnight so over not sure about his urine output and his creatinine is slightly up today. He denies nausea denies flatus denies bowel movement yet since surgery. I discussed with him possibly moving him up to full liquid diet but he prefers the lip the clears the for breakfast as he usually does not eat cereals or anything like that for breakfast. I emphasized that he needs to review the diet that I want him to stay on for low-fat for the next week to 2 weeks until he comes back to the office. Review of Systems Review of Systems: All systems reviewed & are unremarkable except as noted in HPI and below Constitutional: Constitutional: Reports as per HPI, Denies chills and Denies fever(s) Cardiovascular: Cardiovascular: Denies chest pain and Denies dyspnea Respiratory: Respiratory: Reports no additional respiratory complaints and Denies dyspnea Gastrointestinal: Gastrointestinal: Reports as per HPI and Denies bloa
[2021-04-09 07:58] LABS: Glucose Point of Care 161 mg/dl (65-105)
[2021-04-09] MEDS: ENOXAPARIN 40 MG/0.4 ML SYRINGE SUB-Q (08:20)
[2021-04-09] MEDS: HYDROcodone/acetaminophen (*CRX) 5-325 MG TABLET 1 TAB PO (08:20)
[2021-04-09 10:28] VITALS: O2SAT 98
[2021-04-09 10:47] VITALS: BP 132/79; PULSE 90; RESP 18; TEMP 36.1; O2SAT 98
[2021-04-09 11:58] LABS: Glucose Point of Care 170 mg/dl (65-105)
--- NOTE | 2021-04-09 12:31 | WPDANESPN ---
Anes - Prog Note Post-Op Date/Time: 04/09/21 12:31 Cardiovascular status: normal Respiratory status: normal Airway patency: baseline Mental status: baseline Post-Op hydration status: normal Vital Signs: Last Vital Signs Temp 36.1 C L 04/09/21 10:47 Pulse 90 04/09/21 10:47 Resp 18 04/09/21 10:47 BP 132/79 04/09/21 10:47 Pulse Ox 98 04/09/21 10:47 Pain Score (VAS): 0 I/O: Intake & Output 04/08/21 04/09/21 04/09/21 23:59 07:59 15:59 Intake Total 350 1400 360 Output Total 150 220 Balance 200 1400 140 Laboratory Tests 04/09/21 05:36 04/09/21 05:36 04/08/21 04/08/21 04/08/21 18:22 20:35 21:35 WBC RBC Hgb Hct MCV MCH MCHC RDW Plt Count MPV Immature Gran % (Auto) Neut % (Auto) Lymph % (Auto) [place] % (Auto) Eos % (Auto) Baso % (Auto) Lymph # (Auto) [place] # (Auto) Eos # (Auto) Baso # (Auto) Abs Immat Gran (auto) Absolute Neuts (auto) Absolute Nucleated RBC Nucleated RBC % Sodium Potassium Chloride Carbon Dioxide Anion Gap BUN Creatinine Estim Creat Clear Calc Estimated GFR Glucose POC Capillary Glucose 239 H 261 H Calcium Total Bilirubin AST ALT Alkaline Phosphatase Total Protein Albumin Lipase Ur Random Sodium Urine Creatinine Blood Type A Positive Antibody Screen Negative 04/08/21 04/09/21 04/09/21 21:44 05:36 05:36 WBC 19.6 H RBC 3.70 L Hgb 11.0 L Hct 33.3 L MCV 90.0 MCH 29.7 MCHC 33.0 RDW 12.5 Plt Count 260 MPV 9.9 Immature Gran % (Auto) 0.8 H Neut % (Auto) 80.2 H Lymph % (Auto) 9.0 L [place] % (Auto) 6.8 Eos % (Auto) 3.0 Baso % (Auto) 0.2 Lymph # (Auto) 1.77 [place] # (Auto) 1.3 H Eos # (Auto) 0.6 H Baso # (Auto) 0.0 Abs Immat Gran (auto) 0.15 H Absolute Neuts (auto) 15.8 H Absolute Nucleated RBC 0.0 Nucleated RBC % 0.0 Sodium 131 L Potassium 4.8 Chloride 100 Carbon Dioxide 23 Anion Gap 8 BUN 16 Creatinine 1.60 H Estim Creat Clear Calc 39 Estimated GFR 43 L Glucose 176 H POC Capillary Glucose Calcium 8.3 L Total Bilirubin 0.4 AST 58 ALT 56 H Alkaline Phosphatase 46 Total Protein 6.0 L Albumin 3.4 L Lipase 16 L Ur Random Sodium 109 Urine Creatinine 111.6 Blood Type Antibody Screen 04/09/21 04/09/21 07:54 11:50 WBC RBC Hgb Hct MCV MCH MCHC RDW Plt Count MPV Immature Gran % (Auto) Neut % (Auto) Lymph % (Auto) [place] % (Auto) Eos % (Auto) Baso % (Auto) Lymph # (Auto) [place] # (Auto) Eos # (Auto) Baso # (Auto) Abs Immat Gran (auto) Absolute Neuts (auto) Absolute Nucleated RBC Nucleated RBC % Sodium Potassium Chloride Carbon Dioxide Anion Gap BUN Creatinine Estim Creat Clear Calc Estimated GFR Glucose POC Capillary Glucose 161 H 170 H Calcium Total Bilirubin AST ALT Alkaline Phosphatase Total Protein Albumin Lipase Ur Random Sodium Urine Creatinine Blood Type Antibody Screen Microbiology 04/08/21 15:49 Bile Gram Stain - Final Post-procedural complaints: none Patient Feedback: Patient satisfied with anesthetic care.
[2021-04-09 13:31] VITALS: BP 166/82; PULSE 87; RESP 16; TEMP 36.8; O2SAT 98
--- NOTE | 2021-04-09 16:09 | PM.IMPN ---
Progress Note: A&P Assessment and Plan (1) Acute calculous cholecystitis: Onset Date: ~03/2021 Code(s): K80.00 - Calculus of gallbladder with acute cholecystitis without obstruction Status: Acute Assessment and Plan: -Sounds like pt has a complicated hx regarding cholelithiasis including previous admission, transfer to outside facility, and therapeutic ERCP. Was recommended he have outpatient cholecystectomy at that time but patient never followed up. -CT abd/pelv w/ cholelithiasis, pneumobilia, common bile duct dilatation; soft tissue density in the distal common bile duct may be due to choledocholithiasis or neoplasm; consider MRCP or ERCP as clinically appropriate -MRCP showing acute cholecystitis -Consult placed to GI and general surgery -Cholecystectomy POD#1, doing well, tolerating clear -Further management per surgery, appreciate their recommendations (2) Sepsis: Code(s): A41.9 - Sepsis, unspecified organism Status: Acute Assessment and Plan: -Meets SIRS based on tachycardia and leukocytosis of 23.3, likely due to above -Lactate negative -Received 1L NS bolus in ED and is currently receiving NS @125/hr -Zosyn started in ED, will continue -Continue IVF, IV zosyn -BC no growth as of today (had received one dose of zosyn in ED prior to blood cultures being drawn) -Improving. No fever x24 hours. WBC down to 19.6. (3) Type 2 diabetes mellitus without complication, without long-term current use of insulin: Code(s): E11.9 - Type 2 diabetes mellitus without complications Status: Chronic Assessment and Plan: -Takes Januvia and Metformin at home, currently held while patient is NPO -Low dose sliding scale as needed -Continue monitoring and resume home medications when no longer NPO (4) CKD (chronic kidney disease) stage 3, GFR 30-59 ml/min: Onset Date: Unknown Qualifiers: Chronic kidney disease stage 3 subtype: unspecified whether 3a or 3b Qualified Code(s): N18.30 - Chronic kidney disease, stage 3 unspecified Code(s): N18.3 - Chronic kidney disease, stage 3 (moderate) Status: Acute Assessment and Plan: -Creat stable from prior -Followed by outside fiber optic assembly worker -Cautious hydration with IVF -Continue monitoring (5) Benign essential hypertension: Code(s): I10 - Essential (primary) hypertension Status: Acute Assessment and Plan: -Mildly hypertensive, likely increased due to pain -BP meds held initially while NPO -Hydralazine prn -Resume home medications at this time (6) Hyponatremia: Code(s): E87.1 - Hypo-osmolality and hyponatremia Status: Acute Assessment and Plan: -Likely due to above -Continue IV NS -Improving Subjective Date/time seen: 04/09/21 16:09 Interval history: 70-year-old male with history of HTN, CKD and DM here for abdominal pain and found to have acute cholecystitis. He is POD#1 s/p cholecystectomy. He is doing well. Still has abdominal discomfort but is much better. States urinating normally. No BM yet. Review of Systems Review of Systems: General: no fever, chills Eyes: Denies vision changes or eye pain ENT: Denies nasal congestion or sore throat Respiratory: Denies cough or shortness of breath Cardiovascular: Denies chest pain, palpitations, or lower extremity edema Gastrointestinal: + abdominal pain, no nausea, no vomiting, no diarrhea Genitourinary: Denies dysuria or urinary frequency Musculoskeletal: Denies back pain or joint pain Neurological: Denies headache, paraesthesias, or motor weakness Integumentary: Denies rash or other skin lesions Exam Narrative: General: NAD, non toxic Eyes: PERRL, no scleral icterus HEENT: NCAT, external ears normal, MMM Respiratory: No respiratory distress, Lungs CTA bilaterally, no wheezing Cardiovascular: RRR, no murmur Abdominal: Soft, mildly tender epigastric and RUQ, non distended, no rebo
[2021-04-09 16:33] LABS: Glucose Point of Care 175 mg/dl (65-105)
[2021-04-09] MEDS: ROSUVASTATIN 10 MG TABLET PO (16:56)
[2021-04-09 20:27] VITALS: BP 164/86; PULSE 87; RESP 16; TEMP 36.5; O2SAT 98
[2021-04-09 20:35] LABS: Glucose Point of Care 170 mg/dl (65-105)
[2021-04-09] MEDS: SENNA/DOCUSATE SODIUM TABLET 2 TAB PO (22:19)
[2021-04-10] MEDS: SODIUM CHLORIDE 0.9% IV 1,000 ML 125 ML IV CONT ×2 (03:00→09:10)
[2021-04-10 04:51] VITALS: BP 158/86; PULSE 83; RESP 16; TEMP 36.2; O2SAT 98
[2021-04-10 05:48] LABS: Basophils Absolute Auto 0.1 K/mm3 (0.0-0.1); Basophils Percent Auto 0.5 % (0.2-1.2); Eosinophils Absolute Auto 0.1 K/mm3 (0-0.3); Eosinophils Percent Auto 1.1 % (0-4.4); Hematocrit 31.1 % (42.0-52.0); Hemoglobin 10.6 g/dL (14.0-18.0); Immature Granulocyte Absolute 0.05 K/mm3 (0.00-0.031); Immature Granulocyte Percent A 0.4 % (0-0.5); Lymphocytes Absolute Auto 1.69 K/mm3 (0.9-3.2); Lymphocytes Percent Auto 12.9 % (18.3-44.2); Mean Corpuscular HGB Conc 34.1 g/dl (32-36); Mean Corpuscular Hemoglobin 29.6 pg (26-34); Mean Corpuscular Volume 86.9 fl (80-100); Mean Platelet Volume 9.7 fl (7.4-10.4); Monocytes Absolute Auto 0.9 K/mm3 (0.1-0.6); Monocytes Percent Auto 7.1 % (2.6-8.5); Neutrophils Absolute Auto 10.3 K/mm3 (1.3-6.7); Platelet Count Result 290 k/mm3 (150-375); Red Blood Count 3.58 M/mm3 (4.6-6.20); Red Cell Distribution Width 12.2 % (11.5-14.5); White Blood Count 13.1 K/mm3 (4.5-10.0)
[2021-04-10 06:00] LABS: Alanine Aminotransferase 99 U/L (4-50); Albumin Level 3.4 g/dL (3.5-5.1); Alkaline Phosphatase 50 U/L (38-126); Anion Gap 8 mmol/L (8-16); Aspartate Amino Transferase 75 U/L (17-59); Bilirubin,Total 0.4 mg/dL (0.2-1.3); Blood Urea Nitrogen 11 mg/dL (9-20); Calcium 8.5 mg/dL (8.4-10.2); Carbon Dioxide 20 mmol/L (22-30); Chloride 105 mmol/L (98-107); Estimated CRCL calculation 45 ml/min; Estimated Glomerular Filt Rate 50; Glucose 161 mg/dL (65-110); Potassium 3.9 mmol/L (3.4-5.0); Sodium 133 mmol/L (137-145)
[2021-04-10 07:43] LABS: Glucose Point of Care 154 mg/dl (65-105)
[2021-04-10] MEDS: amLODIPine BESYLATE 5 MG TABLET 10 MG PO (09:10)
[2021-04-10] MEDS: ENOXAPARIN 40 MG/0.4 ML SYRINGE SUB-Q (09:10)
[2021-04-10] MEDS: ASPIRIN 81 MG ENTERIC TABLET PO (09:10)
[2021-04-10] MEDS: hydroCHLOROthiazide 12.5 MG CAPSULE PO (09:10)
[2021-04-10] MEDS: LOSARTAN POTASSIUM 100 MG TABLET PO (09:10)
[2021-04-10 11:38] LABS: Glucose Point of Care 149 mg/dl (65-105)
--- NOTE | 2021-04-10 12:15 | PM.PNGS ---
Progress Note: A&P Assessment and Plan (1) Acute calculous cholecystitis: Onset Date: ~03/2021 Code(s): K80.00 - Calculus of gallbladder with acute cholecystitis without obstruction Status: Acute Assessment and Plan: Patient now postop day 2. Status post difficult laparoscopic cholecystectomy. Seems to be recovering okay. If okay with hospitalist I am okay with him going home and following up with his PCP. (2) CKD (chronic kidney disease) stage 3, GFR 30-59 ml/min: Onset Date: Unknown Qualifiers: Chronic kidney disease stage 3 subtype: unspecified whether 3a or 3b Qualified Code(s): N18.30 - Chronic kidney disease, stage 3 unspecified Code(s): N18.3 - Chronic kidney disease, stage 3 (moderate) Status: Acute Assessment and Plan: Creatinine down to 1.4 today but BUN normal. [facility] continued normal saline hydration overnight and the patient has been drinking better. Therefore, it appears that his sodium is starting to come up and he is moving toward his baseline for creatinine level. If okay with hospitalist I am okay with him going home and following up with his PCP. (3) Epigastric pain: Code(s): R10.13 - Epigastric pain Status: Acute Assessment and Plan: Essentially gone now postop day 2 from laparoscopic cholecystectomy. States I have some soreness in the upper abdomen but nothing that would take pain pills for . (4) Pneumobilia: Code(s): K83.8 - Other specified diseases of biliary tract Status: Acute Assessment and Plan: This is not concerning as it is often present after ERCP which she had in 2017 or 2018 at [place]. (5) Sepsis: Code(s): A41.9 - Sepsis, unspecified organism Status: Acute Assessment and Plan: Blood culture still negative this morning and culture still pending on the bile that I sent from his gallbladder yesterday afternoon. Gram stain shows Gram-negative bacilli which most likely is E coli that should be sensitive to what he has been on. Since he is afebrile I would think that we could stop his antibiotics and send him home without any. He can call the office begins running a fever. I would want him to let us know if he consistently runs a fever greater than 100.5 over several times that he takes it. (6) Type 2 diabetes mellitus without complication, without long-term current use of insulin: Code(s): E11.9 - Type 2 diabetes mellitus without complications Status: Chronic Assessment and Plan: As per hospitalist. Subjective Subjective Date/Time Seen: 04/10/21 12:15 Post Op day: 2 ( doing well postop day 2 status post difficult laparoscopic cholecystectomy for acute cholecystitis.) Patient reports: feels better and bowel movement Interval history: Pt's nurse reports patient's white count is further down today and he is not taking any specific pain pills. He is up moving around walking the halls. He states to me that he feels good and is not nauseated. He tolerated a low-fat diet for breakfast. Review of Systems Review of Systems: All systems reviewed & are unremarkable except as noted in HPI and below Constitutional: Constitutional: Reports as per HPI, Denies chills, Denies fatigue and Denies fever(s) Eyes: Eyes: Reports no additional eye complaints and Denies change in vision ENT: Reports system reviewed and no additional complaints, except as documented Cardiovascular: Cardiovascular: Reports no additional cardiovascular complaints, Denies chest pain, Denies leg edema and Denies dyspnea Respiratory: Respiratory: Reports no additional respiratory complaints, Reports no additional respiratory complaints, Denies cough and Denies dyspnea Gastrointestinal: Gastrointestinal: Reports as per HPI, Reports no additional gastrointestinal complaints, Denies nausea and Denies vomiting Genitourinary: Genitourinary: Denies hematuria and Denies dysuria In
--- NOTE | 2021-04-10 12:37 | PM.DS ---
DS: Admitting Diagnosis Discharge Date 04/10/21 Admitting Diagnosis cholecystitis DS: Discharge Diagnosis Discharge Diagnosis (1) Acute calculous cholecystitis: Onset Date: ~03/2021 Code(s): K80.00 - Calculus of gallbladder with acute cholecystitis without obstruction Status: Acute Assessment and Plan: -Sounds like pt has a complicated hx regarding cholelithiasis including previous admission, transfer to outside facility, and therapeutic ERCP. Was recommended he have outpatient cholecystectomy at that time but patient never followed up. -CT abd/pelv w/ cholelithiasis, pneumobilia, common bile duct dilatation; soft tissue density in the distal common bile duct may be due to choledocholithiasis or neoplasm; consider MRCP or ERCP as clinically appropriate -MRCP showing acute cholecystitis -Consult placed to GI and general surgery -Cholecystectomy POD#2, doing well, tolerating clears, will go home on low fat diet -Per surgery pt stable for discharge and follow up outpatient -Will send home on Levaquinx3 days for a total of 7 days of abx therapy (2) Sepsis: Code(s): A41.9 - Sepsis, unspecified organism Status: Acute Assessment and Plan: -Meet SIRS on arrival based on tachycardia and leukocytosis of 23.3, likely due to above -Lactate negative -Received 1L NS bolus in ED and is currently receiving NS @125/hr -Zosyn started in ED -Continued IVF, IV zosyn -resolved. still has mild leukocytosis of 13.1 however this is significantly improved. He has not had a fever in 48 hours. -BC no growth as of today but will follow up on final result -Bile culture growing E. Coli: discussed w/ general surgery Dr. Corrigan who is in agreement with Levaquin on discharge (3) Type 2 diabetes mellitus without complication, without long-term current use of insulin: Code(s): E11.9 - Type 2 diabetes mellitus without complications Status: Chronic Assessment and Plan: -Takes Januvia and Metformin at home, held while patient was NPO -Low dose sliding scale as needed -Blood sugars stable -resume home meds on discharge (4) CKD (chronic kidney disease) stage 3, GFR 30-59 ml/min: Onset Date: Unknown Qualifiers: Chronic kidney disease stage 3 subtype: unspecified whether 3a or 3b Qualified Code(s): N18.30 - Chronic kidney disease, stage 3 unspecified Code(s): N18.3 - Chronic kidney disease, stage 3 (moderate) Status: Acute Assessment and Plan: -Creat stable from prior -Followed by outside bottling equipment sales representative -Cautious hydration with IVF -Improving today. Will order repeat BMP in 1 week and have pt follow up with his bottling equipment sales representative at his regularly scheduled appt. (5) Benign essential hypertension: Code(s): I10 - Essential (primary) hypertension Status: Acute Assessment and Plan: -Mildly hypertensive initially, likely increased due to pain -BP meds held initially while NPO -Hydralazine ordered prn but was never needed -Resumed home medications when tolerating PO (6) Hyponatremia: Code(s): E87.1 - Hypo-osmolality and hyponatremia Status: Acute Assessment and Plan: -Likely due to above -Continued IV NS -Continued improvement, repeat CMP in one week DS: Summary Hospital Course Reason for hospitalization: 70-year-old male with history of HTN, CKD and DM here for abdominal pain and found to have acute cholecystitis. Please see HPI for further details. Hospital Course: Please see above for details of hospital course. Status at Discharge Cognitive/behavioral status at discharge: stable Functional status at discharge: independent ambulation Overall status at discharge: patient is progressing back to baseline Time Spent with Patient Time attestation: Total time spent providing and/or coordinating discharge services: 32 Time spent: Greater than 30 minutes Exam Narrative: General: NAD, non toxic
--- NOTE | 2021-04-13 13:04 | PC.NURSE ---
Blood cx are negative.
== END 2021-04-10 14:18 | disposition home or self-care (01) | DRG 854 ==
LOC: ANHED 04-07 03:19 → ANH3MED 04-07 06:36
PROVIDERS: Physician Assistant; Surgery; Admitting Provider Internal Medicine; Emergency Provider Emergency Medicine; PCP Family Medicine; Visit Provider Internal Medicine
PROC: 0FT44ZZ Resection of Gallbladder, Percutaneous Endoscopic Approach (ICD-10-PCS; CPT 47562; principal; 2021-04-08 16:00)
DX: A41.9 Sepsis, unspecified organism (principal); K80.00 Calculus of gallbladder with acute cholecystitis without obstruction; E87.1 Hypo-osmolality and hyponatremia; N17.9 Acute kidney failure, unspecified; B96.20 Unspecified Escherichia coli [E. coli] as the cause of diseases classified elsewhere; K83.8 Other specified diseases of biliary tract; I12.9 Hypertensive chronic kidney disease with stage 1 through stage 4 chronic kidney disease, or unspecified chronic kidney disease; E11.22 Type 2 diabetes mellitus with diabetic chronic kidney disease; N18.30 Chronic kidney disease, stage 3 unspecified; E78.2 Mixed hyperlipidemia; Z79.82 Long term (current) use of aspirin
CPT/HCPCS: 36415; 70030; 74177; 74183; 76376; 80048; 80053; 80076; 82570; 82948; 83605; 83690; 83735; 84300; 84484; 85025; 86850; 86900; 86901; 87040; 87070; 87075; 87076; 87077; 87186; 87205; 88304; 93005; 96361; 96365; 96375; 96376; 99285; A9270; A9577; C1713; J1100; J1170; J1650; J1815; J2250; J2405; J2543; J2550; J2704; J2710; J3010; J3480; J7030; J7120; Q9966; Q9967

== ENCOUNTER 2021-07-02 14:32 | Outpatient (CLI) | payer OTHER, SELFPAY ==
[2021-07-02 20:15] LABS: Hematocrit 39.5 % (42.0-52.0); Hemoglobin 13.3 g/dL (14.0-18.0); Mean Corpuscular HGB Conc 33.7 g/dl (32-36); Mean Corpuscular Hemoglobin 29.8 pg (26-34); Mean Corpuscular Volume 88.6 fl (80-100); Mean Platelet Volume 10.3 fl (7.4-10.4); Platelet Count Result 434 k/mm3 (150-375); Red Blood Count 4.46 M/mm3 (4.6-6.20); Red Cell Distribution Width 13.2 % (11.5-14.5); White Blood Count 9.1 K/mm3 (4.5-10.0)
[2021-07-02 20:20] LABS: Anion Gap 11 mmol/L (8-16); Blood Urea Nitrogen 17 mg/dL (9-20); Calcium 10.1 mg/dL (8.4-10.2); Carbon Dioxide 25 mmol/L (22-30); Chloride 98 mmol/L (98-107); Estimated Glomerular Filt Rate 43; Glucose 146 mg/dL (65-110); Potassium 4.5 mmol/L (3.4-5.0); Sodium 134 mmol/L (137-145)
[2021-07-02 20:57] LABS: Hemoglobin A1C 7.2 % (<5.7)
== END 2021-07-02 14:33 | disposition home or self-care (01) ==
PROVIDERS: PCP Family Medicine; Visit Provider Family Medicine
DX: E11.9 Type 2 diabetes mellitus without complications (principal); E87.1 Hypo-osmolality and hyponatremia
CPT/HCPCS: 36415; 80048; 83036; 85027

== ENCOUNTER 2021-09-23 11:53 | Outpatient (CLI) | payer OTHER, SELFPAY ==
[2021-09-23 19:55] LABS: Anion Gap 10 mmol/L (8-16); Blood Urea Nitrogen 15 mg/dL (9-20); Calcium 9.8 mg/dL (8.4-10.2); Carbon Dioxide 26 mmol/L (22-30); Chloride 92 mmol/L (98-107); Estimated Glomerular Filt Rate 46; Glucose 134 mg/dL (65-110); Potassium 4.7 mmol/L (3.4-5.0); Sodium 128 mmol/L (137-145)
== END 2021-09-23 11:54 | disposition home or self-care (01) ==
PROVIDERS: PCP Family Medicine; Visit Provider Family Medicine
DX: N18.9 Chronic kidney disease, unspecified (principal)
CPT/HCPCS: 36415; 80048

== ENCOUNTER 2021-12-29 14:33 | Outpatient (CLI) | payer OTHER, SELFPAY ==
[2021-12-29 19:12] LABS: Alanine Aminotransferase 54 U/L (6-50); Albumin Level 5.2 g/dL (3.5-5.1); Alkaline Phosphatase 65 U/L (38-126); Anion Gap 13 mmol/L (8-16); Aspartate Amino Transferase 68 U/L (17-59); Bilirubin,Total 0.6 mg/dL (0.2-1.3); Blood Urea Nitrogen 18 mg/dL (9-20); Calcium 9.8 mg/dL (8.4-10.2); Carbon Dioxide 26 mmol/L (22-30); Chloride 93 mmol/L (98-107); Estimated Glomerular Filt Rate 50; Glucose 124 mg/dL (65-110); Potassium 4.2 mmol/L (3.4-5.0); Sodium 132 mmol/L (137-145)
[2021-12-29 19:58] LABS: Creatinine Urine 36.5 mg/dL
[2021-12-29 20:26] LABS: MALB Creatinine Ratio < 16.4 mg/g (0-30); Microalbumin Urine Random < 6.0 mg/L (0-16.7)
[2021-12-29 20:53] LABS: Hemoglobin A1C 6.9 % (<5.7)
== END 2021-12-29 14:34 | disposition home or self-care (01) ==
PROVIDERS: PCP Family Medicine; Visit Provider Family Medicine
DX: E11.9 Type 2 diabetes mellitus without complications (principal)
CPT/HCPCS: 36415; 80053; 82043; 83036

== ENCOUNTER 2022-04-01 15:04 | Outpatient (CLI) | payer OTHER, SELFPAY ==
[2022-04-01 19:33] LABS: Alanine Aminotransferase 102 U/L (6-50); Albumin Level 4.8 g/dL (3.5-5.1); Alkaline Phosphatase 72 U/L (38-126); Anion Gap 15 mmol/L (8-16); Aspartate Amino Transferase 66 U/L (17-59); Bilirubin,Total 0.6 mg/dL (0.2-1.3); Blood Urea Nitrogen 17 mg/dL (9-20); Calcium 9.1 mg/dL (8.4-10.2); Carbon Dioxide 21 mmol/L (22-30); Chloride 98 mmol/L (98-107); Estimated Glomerular Filt Rate 50; Glucose 135 mg/dL (65-110); Potassium 4.2 mmol/L (3.4-5.0); Sodium 134 mmol/L (137-145)
[2022-04-01 19:39] LABS: Basophils Absolute Auto 0.1 K/mm3 (0.0-0.1); Basophils Percent Auto 0.8 % (0.2-1.2); Eosinophils Absolute Auto 0.1 K/mm3 (0-0.3); Eosinophils Percent Auto 1.3 % (0-4.4); Hematocrit 42.9 % (42.0-52.0); Hemoglobin 14.6 g/dL (14.0-18.0); Immature Granulocyte Absolute 0.04 K/mm3 (0.00-0.031); Immature Granulocyte Percent A 0.4 % (0-0.5); Lymphocytes Absolute Auto 3.29 K/mm3 (0.9-3.2); Lymphocytes Percent Auto 31.6 % (18.3-44.2); Mean Corpuscular Hemoglobin 29.4 pg (26-34); Mean Corpuscular Volume 86.3 fl (80-100); Mean Platelet Volume 9.8 fl (7.4-10.4); Monocytes Absolute Auto 0.7 K/mm3 (0.1-0.6); Monocytes Percent Auto 6.8 % (2.6-8.5); Neutrophils Absolute Auto 6.2 K/mm3 (1.3-6.7); Neutrophils Percent Auto 59.1 % (45.5-73.1); Platelet Count Result 499 k/mm3 (150-375); Red Blood Count 4.97 M/mm3 (4.6-6.20); Red Cell Distribution Width 12.6 % (11.5-14.5); White Blood Count 10.4 K/mm3 (4.5-10.0)
[2022-04-01 19:57] LABS: Hepatitis B Surface Antigen Negative (Negative)
[2022-04-01 20:00] LABS: Creatinine Urine 85.3 mg/dL
[2022-04-01 20:03] LABS: HAV RESULT Negative (Negative); Hepatitis B Core IgM Result Negative (Negative)
[2022-04-01 20:04] LABS: MALB Creatinine Ratio 45.5 mg/g (0-30); Microalbumin Urine Random 38.8 mg/L (0-16.7)
[2022-04-01 20:06] LABS: Hemoglobin A1C 6.8 % (<5.7)
[2022-04-01 20:15] LABS: Hepatitis C Virus Antibody Negative (Negative)
[2022-04-08 16:02] LABS: ALT 75 U/L (9-46); Alpha-2-Macroglobulin 252 mg/dL (106-279); Apolipoprotein A1 129 mg/dL (94-176); Fibrosis Score 0.41; Fibrosis Stage F1-F2; GGT 33 U/L (3-70); Haptoglobin 190 mg/dL (43-212); Necroinflammat Act Grade A1-A2; Total Bilirubin 0.4 mg/dL (0.2-1.2)
== END 2022-04-01 15:05 | disposition home or self-care (01) ==
PROVIDERS: PCP Family Medicine; Visit Provider Family Medicine
DX: R74.8 Abnormal levels of other serum enzymes (principal); E11.9 Type 2 diabetes mellitus without complications; D64.9 Anemia, unspecified; E87.1 Hypo-osmolality and hyponatremia; I12.9 Hypertensive chronic kidney disease with stage 1 through stage 4 chronic kidney disease, or unspecified chronic kidney disease; N18.9 Chronic kidney disease, unspecified; R74.01 Elevation of levels of liver transaminase levels; R74.02 Elevation of levels of lactic acid dehydrogenase [LDH]
CPT/HCPCS: 36415; 80048; 80074; 80076; 81596; 82043; 83036; 85025

== ENCOUNTER 2022-11-22 10:36 | Outpatient (CLI) | payer OTHER, SELFPAY ==
[2022-11-22 12:32] LABS: Hematocrit 41.3 % (42.0-52.0); Hemoglobin 13.9 g/dL (14.0-18.0); Mean Corpuscular HGB Conc 33.7 g/dl (32-36); Mean Corpuscular Hemoglobin 29.5 pg (26-34); Mean Corpuscular Volume 87.7 fl (80-100); Mean Platelet Volume 10.2 fl (7.4-10.4); Platelet Count Result 406 k/mm3 (150-375); Red Blood Count 4.71 M/mm3 (4.6-6.20); White Blood Count 7.7 K/mm3 (4.5-10.0)
[2022-11-22 12:50] LABS: Albumin Level 4.6 g/dL (3.5-5.1); Anion Gap 8 mmol/L (8-16); Blood Urea Nitrogen 14 mg/dL (9-20); Calcium 9.6 mg/dL (8.4-10.2); Carbon Dioxide 27 mmol/L (22-30); Chloride 97 mmol/L (98-107); Creatinine Urine 42.4 mg/dL; Estimated Glomerular Filt Rate 54; Glucose 132 mg/dL (65-110); Magnesium 1.9 mg/dL (1.6-2.3); Phosphorus 3.7 mg/dL (2.5-4.5); Potassium 4.5 mmol/L (3.4-5.0); Sodium 132 mmol/L (137-145); Total Protein Urine Random 11 mg/dL; Ur Ttl Prot Creatinine Ratio 0.26 mg/mg (0-0.20)
[2022-11-22 12:59] LABS: Parathyroid Intact 27.5 pg/mL (7.5-53.5)
[2022-11-22 13:11] LABS: Iron 111 ug/dL (49-181)
[2022-11-22 13:14] LABS: Hemoglobin A1C 6.8 % (<5.7)
[2022-11-22 13:22] LABS: Percent Iron Saturation 28 % (20-50)
[2022-11-22 13:45] LABS: MALB Creatinine Ratio < 14.2 mg/g (0-30); Microalbumin Urine Random < 6.0 mg/L (0-16.7)
== END 2022-11-22 10:37 | disposition home or self-care (01) ==
LOC: ANHWCLAB 10:39
PROVIDERS: PCP Family Medicine; Visit Provider Internal Medicine Nephrology
DX: I12.9 Hypertensive chronic kidney disease with stage 1 through stage 4 chronic kidney disease, or unspecified chronic kidney disease (principal); N18.30 Chronic kidney disease, stage 3 unspecified; E11.22 Type 2 diabetes mellitus with diabetic chronic kidney disease; E78.00 Pure hypercholesterolemia, unspecified
CPT/HCPCS: 36415; 80069; 82043; 82306; 82570; 83036; 83540; 83550; 83735; 83970; 84156; 85027

== ENCOUNTER 2023-04-06 13:05 | Outpatient (CLI) | payer OTHER, SELFPAY ==
[2023-04-06 20:30] LABS: Anion Gap 14 mmol/L (8-16); Blood Urea Nitrogen 20 mg/dL (9-20); Calcium 9.8 mg/dL (8.4-10.2); Carbon Dioxide 27 mmol/L (22-30); Chloride 96 mmol/L (98-107); Cholesterol 174 mg/dL (0-200); Estimated Glomerular Filt Rate 37; Glucose 117 mg/dL (65-110); HDL Direct 36 mg/dL; Potassium 4.3 mmol/L (3.4-5.0); Sodium 137 mmol/L (137-145); Triglycerides 304 mg/dL (<150)
[2023-04-06 20:42] LABS: LDL Cholesterol Direct 75 mg/dL
[2023-04-06 20:46] LABS: Microalbumin Urine Random 6.7 mg/L (0-16.7)
[2023-04-06 20:49] LABS: MALB Creatinine Ratio 4.9 mg/g (0-30)
[2023-04-06 22:08] LABS: Hemoglobin A1C 6.7 % (<5.7)
== END 2023-04-06 13:06 | disposition home or self-care (01) ==
PROVIDERS: PCP Nurse Practitioner Adult Health; Visit Provider Nurse Practitioner Adult Health
DX: E11.9 Type 2 diabetes mellitus without complications (principal)
CPT/HCPCS: 36415; 80048; 80061; 82043; 83036

== ENCOUNTER 2024-04-05 13:40 | Outpatient (CLI) | payer OTHER, SELFPAY ==
[2024-04-05 19:27] LABS: Basophils Absolute Auto 0.1 K/mm3 (0.0-0.1); Basophils Percent Auto 0.7 % (0.2-1.2); Eosinophils Absolute Auto 0.1 K/mm3 (0-0.3); Eosinophils Percent Auto 1.5 % (0-4.4); Hematocrit 41.9 % (42.0-52.0); Hemoglobin 13.5 g/dL (14.0-18.0); Immature Granulocyte Absolute 0.02 K/mm3 (0.00-0.031); Immature Granulocyte Percent A 0.2 % (0-0.5); Lymphocytes Absolute Auto 2.95 K/mm3 (0.9-3.2); Lymphocytes Percent Auto 33.1 % (18.3-44.2); Mean Corpuscular HGB Conc 32.2 g/dl (32-36); Mean Corpuscular Hemoglobin 29.2 pg (26-34); Mean Corpuscular Volume 90.5 fl (80-100); Mean Platelet Volume 10.1 fl (7.4-10.4); Monocytes Absolute Auto 0.8 K/mm3 (0.1-0.6); Monocytes Percent Auto 8.4 % (2.6-8.5); Neutrophils Percent Auto 56.1 % (45.5-73.1); Platelet Count Result 437 k/mm3 (150-375); Red Blood Count 4.63 M/mm3 (4.6-6.20); Red Cell Distribution Width 12.8 % (11.5-14.5); White Blood Count 8.9 K/mm3 (4.5-10.0)
[2024-04-05 20:13] LABS: Alanine Aminotransferase 50 U/L (6-50); Albumin Level 4.8 g/dL (3.5-5.1); Alkaline Phosphatase 57 U/L (38-126); Anion Gap 11 mmol/L (4-12); Aspartate Amino Transferase 56 U/L (17-59); Bilirubin,Total 0.6 mg/dL (0.2-1.3); Blood Urea Nitrogen 16 mg/dL (9-20); Calcium 9.5 mg/dL (8.4-10.2); Carbon Dioxide 26 mmol/L (22-30); Chloride 98 mmol/L (98-107); Cholesterol 138 mg/dL (0-200); Estimated Glomerular Filt Rate 46; Glucose 111 mg/dL (65-110); HDL Direct 36 mg/dL; Potassium 4.3 mmol/L (3.4-5.0); Sodium 135 mmol/L (137-145); Triglycerides 332 mg/dL (<150)
[2024-04-05 20:25] LABS: Creatinine Urine 112.8 mg/dL
[2024-04-05 20:27] LABS: LDL Cholesterol Direct 49 mg/dL
[2024-04-05 20:43] LABS: Prostate Specific Antigen 1.5 ng/mL (< OR = 4.0)
[2024-04-05 21:14] LABS: Creatinine Urine 111.5 mg/dL
[2024-04-05 21:21] LABS: MALB Creatinine Ratio < 5.4 mg/g (0-30); Microalbumin Urine Random < 6.0 mg/L (0-16.7)
[2024-04-05 21:47] LABS: Hemoglobin A1C 6.8 % (<5.7)
== END 2024-04-05 13:41 | disposition home or self-care (01) ==
LOC: ANHBWCLAB 13:42
PROVIDERS: PCP Nurse Practitioner Adult Health; Visit Provider Nurse Practitioner Adult Health
DX: Z12.5 Encounter for screening for malignant neoplasm of prostate (principal); E11.9 Type 2 diabetes mellitus without complications; I10 Essential (primary) hypertension
CPT/HCPCS: 36415; 80053; 80061; 82043; 82565; 82570; 83036; 84153; 85025; G0103

== ENCOUNTER 2025-04-08 14:11 | Outpatient (CLI) | payer OTHER, SELFPAY ==
[2025-04-08 19:04] LABS: Hematocrit 41.0 % (42.0-52.0); Hemoglobin 13.5 g/dL (14.0-18.0); Mean Corpuscular HGB Conc 32.9 g/dl (32-36); Mean Corpuscular Hemoglobin 29.2 pg (26-34); Mean Corpuscular Volume 88.6 fl (80-100); Platelet Count Result 431 k/mm3 (150-375); Red Blood Count 4.63 M/mm3 (4.6-6.20); White Blood Count 9.1 K/mm3 (4.5-10.0)
[2025-04-08 19:31] LABS: Alanine Aminotransferase 36 U/L (6-50); Albumin Level 4.8 g/dL (3.5-5.1); Alkaline Phosphatase 64 U/L (38-126); Anion Gap 10 mmol/L (4-12); Aspartate Amino Transferase 48 U/L (17-59); Bilirubin,Total 0.6 mg/dL (0.2-1.3); Blood Urea Nitrogen 23 mg/dL (9-20); Calcium 9.7 mg/dL (8.4-10.2); Carbon Dioxide 27 mmol/L (22-30); Chloride 97 mmol/L (98-107); Cholesterol 154 mg/dL (0-200); Estimated Glomerular Filt Rate 43; Glucose 119 mg/dL (65-110); HDL Direct 36 mg/dL; Potassium 4.6 mmol/L (3.4-5.0); Sodium 134 mmol/L (137-145); Total Protein 7.9 g/dL (6.3-8.2); Triglycerides 331 mg/dL (<150)
[2025-04-08 19:32] LABS: Hemoglobin A1C 6.7 % (<5.7)
[2025-04-08 20:26] LABS: MALB Creatinine Ratio < 5.2 mg/g (0-30)
--- OUTSIDE RECORDS SUMMARY | 2025-04-08 23:40 | XMS_ITS | Clinical Summary ---
Author Organization [facility] Address [address] [place] [id number] Phone Care Team Providers Care Electric Welder Helper Name Role Phone Rogelio Woo MD Primary Care Provider [phone] Allergies No known active allergies Medications rosuvastatin (CRESTOR) 20 MG tablet 01/17/2018 Active SITagliptin (Januvia) 100 MG tablet 01/09/2018 Active metFORMIN (GLUCOPHAGE) 500 MG tablet 01/17/2018 Active losartan (COZAAR) 100 MG tablet 01/17/2018 Activ e amLODIPine (NORVASC) 5 MG tablet 12/08/2017 Active Active Problems Problem Noted Date Diagnosed Date Nonspecific abnormal results of function study o f kidney 10/25/2019 Acute injury of kidney 11/30/2017 Overview (10/25/2019): Last Assessment & Plan: TITI: Patient presented with Cr at 1.7, unknown baseline but likely normal as patient has limited PMH and controlled HTN and DMII. Most likely pre-renal in the setting of little/no PO intake over the last 3 days. - IV fluids - hold losartan Type 2 diabetes mellitus 11/30/2017 Overview (10/25/2019): Last Assessment & Plan: Glucose within target range on admission - begin insulin sliding scale Essential hypertension 11/30/2017 Overview (10/25/2019): Last Assessment & Plan: Essential hypertension: Normotensive on admission. - continue amlodipine - hold losartan until TITI resolves Immunizations Immunization Administration Dates Next Due Pneumococcal Conjugate 10/21/2016 Pneumococcal Conjugate 13-Valent 10/21/2018 Family History Medical History Relation Comments Kidney disease Brother Relation Status Comments Brother Social History Tobacco Use Types Packs/Day Years Used Date Smoking Tobacco: Never Smokeless Tobacco: Never Alcohol Use Standard Drinks/Week Comments Never 0 (1 standard drink = 0.6 oz pur e alcohol) AUDIT-C Answer Date Recorded Frequency of Alcohol Consumption Never 10/25/2019 Average Number of Drinks Not on file 020 Frequency of Binge Drinking Not on file 08/2019 Sex and Gender Information Value Date Recorded Sex Assigned at Not on file Legal Sex Male 9:28 AM MDT Gender Identity Not on file Sexual Orientation Not on file Last Filed Vital Signs Vital Sign Reading Time Taken Comments Blood Pressure 136/84 10/25/2019 1:20 PM CDT Pulse 84 10/25/2019 1:20 PM CDT Temperature 36.4 C (97.6 F) 10/25/2019 1:20 PM CDT Respiratory Rate - - Oxygen Saturation - - Inhaled Oxygen Concentration - - Weight 87.1 kg (192 lb) 10/25/2019 1:20 PM CDT Height 175.3 cm (5' 9) 10/25/2019 1:20 PM CDT Body Mass Index 28.35 10/25/2019 1:20 PM CDT Plan of Treatment Health Maintenance Due Date Last Done Comments Pneumococcal PPSV23/PCV13 65 + Years / Low and Medium Risk (2 of 3 - PCV20 or PCV21) 10/22/2019 10/21/2018 Influenza Vaccine (#1) 2025 Insurance [employer] MED[employer]VANTAGE Member Subscriber Plan / Payer (Ef fective 2019-Present) Name:Gilmer Humphreys Member ID:[id number] xxxxx [id number] [id number] HMO Relation to Subscriber:Self Name:iGlmer Humphreys Subscriber ID:xxxxxxxxxxxx xxxxx [id number] xxx [id number] HMO Payer ID:[id number] (NAIC) Type:Not on file Address: [facility] [id number] [place] [address] Care Teams Electric Welder Helper Relationship Specialty Start Date End Date Rogelio Woo MD [address] [place] [id number] PCP - General Family Medicine 10/18/19
== END 2025-04-08 14:12 | disposition home or self-care (01) ==
PROVIDERS: PCP Nurse Practitioner Adult Health; Visit Provider Nurse Practitioner Adult Health
DX: E11.22 Type 2 diabetes mellitus with diabetic chronic kidney disease (principal); N18.30 Chronic kidney disease, stage 3 unspecified; D64.9 Anemia, unspecified
CPT/HCPCS: 36415; 80053; 80061; 82043; 82565; 83036; 85027